=== PATIENT | male | born 1950 | race Caucasian/White ===

== ENCOUNTER 2019-11-05 12:52 | Emergency (ER) | payer MEDICARE ==
[2019-11-05] MEDS ORDERED: SUBLIMAZE 100 MCG/2 ML IV ONE (13:20)
[2019-11-05] MEDS ORDERED: Zofran 4 MG/2 ML VIAL IV ONE (13:21)
--- NOTE | 2019-11-05 13:21 | ERPHSYRPT ---
- History of Present Illness Time Seen by Provider: 11/05/19 12:59 Source: patient Exam Limitations: no limitations Patient Subjective Stated Complaint: fell off truck Tuesday Triage Nursing Assessment: pt to ED c/o L rib pain r/t fall off truck on Tuesday. pt denies LOC or blood thinners. rares 8/10 pain that worsens when coughing. tender to palp. no obvious signs of injury noted. no SOB or diff breathing. ambulatory without assistance. lungs clear and equal, heart sounds clear. Physician History: Fell off back of truck 2 days ago from height approx 10-12 feet. Pt complains of B rib pain which is a 4/10. He denies LOC/[place]/cervical pain/back pain/upper or LE pain. Method of Injury: fall Occurred: days ago (2 days ago) Loss of Consciousness: no loss of consciousness Pain Location: chest Severity of Pain-Max: moderate Severity of Pain-Current: moderate Modifying Factors: Improves With: other (Deep breaths/movement) Associated Symptoms: No abdominal pain, No back pain, No confusion, No chest pain, No dizziness, No extremity injury, No headache, No lightheadedness, No muscle spasms, No nausea, No neck pain, No ringing in ears, No seizures, No shortness of breath, No slurred speech, No trouble walking, No vomiting, No vision changes Hx Tetanus, Diphtheria Vaccination/Date Given: No Hx Influenza Vaccination/Date Given: No Hx Pneumococcal Vaccination/Date Given: Yes Immunizations Up to Date: No Travel Risk - International Travel Have you traveled outside of the country in past 3 weeks: No - Coronavirus Screening Are you exhibiting any of the following symptoms?: No Close contact with a COVID-19 positive Pt in past 14-21 Days: No - Review of Systems Constitutional: No Symptoms Eyes: No Symptoms Ears, Nose, & Throat: No Symptoms Respiratory: No Symptoms Cardiac: No Symptoms Abdominal/Gastrointestinal: No Symptoms Genitourinary Symptoms: No Symptoms Musculoskeletal: No Symptoms Skin: No Symptoms Neurological: No Symptoms Psychological: No Symptoms Endocrine: No Symptoms Hematologic/Lymphatic: No Symptoms Immunological/Allergic: No Symptoms - Past Medical History Neurological History: No Pertinent History ENT History: Cataracts Cardiac History: Hypertension, Myocardial Infarction ([place]) Respiratory History: Bronchitis, Emphysema, Pneumonia Endocrine Medical History: Diabetes Type II Musculoskeletal History: No Pertinent History GI Medical History: No Pertinent History History: No Pertinent History Psycho-Social History: No Pertinent History Male Reproductive Disorders: No Pertinent History - Past Surgical History Past Surgical History: Yes Neuro Surgical History: No Pertinent History Cardiac: No Pertinent History Respiratory: No Pertinent History Gastrointestinal: Appendectomy Genitourinary: No Pertinent History Musculoskeletal: No Pertinent History Male Surgical History: No Pertinent History Other Surgical History: finger surgery - Social History Smoking Status: Current every day smoker How long have you smoked: years Exposure to second hand smoke: No Alcohol Use: None Drug Use: none Patient Lives Alone: No Significant Family History: no pertinent family hx Physical Exam - Nursing Vital Signs Nursing Vital Signs: Initial Vital Signs Pulse Rate 96 H 11/05/19 13:44 Respiratory Rate 18 11/05/19 13:44 Blood Pressure 135/85 11/05/19 13:44 O2 Sat by Pulse Oximetry 95 11/05/19 13:44 Pain Scale Pain Intensity 5 - [place] Coma Score Best Eye Response (Pérez): (4) open spontaneously Best Verbal Response (Pérez): (5) oriented Best Motor Response ([place]): (6) obeys commands Pérez Total: 15 - Physical Exam General Appearance: no apparent distress Head Injury: no evidence of injury Eye Exam: bilateral eye: normal inspection, PERRL, EOMI ENT Exam: airway nml, evidence of ENT injury, nml ext.inspection, No dental injury Neck Exam: supple, trachea midline, full range of motion, normal inspection, No limited range of motion, No muscle spasm, No pain on movement of neck (C-spine nttp) Respiratory/Chest Exam: chest tenderness (B lateral thorax ttp/Rhonchi B), rhonchi, No respiratory distress Cardiovascular Exam: normal heart sounds, regular rate/rhythm, No murmur, No normal peripheral pulses, No edema Gastrointestinal Exam: soft, normal bowel sounds, tenderness, No distention Back Exam: normal inspection, normal range of motion (No T or L spine ttp) Extremity Exam: normal inspection, normal range of motion, capillary refill <3 sec, pelvis stable, No deformities, No lacerations Peripheral Pulses: carotid (R): 2+, carotid (L): 2+ Neurologic Exam: alert, oriented x 3, cooperative, 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 as tested, normal mood/affect, nml cerebellar function, nml station & gait, sensation nml, No motor deficits, No sensory deficit Skin Exam: normal color, warm, dry, No rash SpO2 Interpretation: normal O2 Delivery: Room Air - Course EKG Interpreted by Me: RATE (NSR/rate94/Pac's/Prolonged QTc/ST-T wave changes) - CT Exams Chest CT Interpretation: Discussed w/radiologist (CT chest w IV contrast-no acute traumatic injury) Ordered Tests: Active Orders 24 hr Category Date Time Status [employer] STAT Care 11/05/19 13:45 Active EKG-ER Only STAT Care 11/05/19 13:15 Active IV Insertion STAT Care 11/05/19 13:24 Active CHEST WITH CONTRAST [CT] Stat Exams 11/05/19 13:15 Completed CBC W DIFF Stat Lab 11/05/19 13:00 Completed CMP Stat Lab 11/05/19 13:00 Completed TROPONIN Q3H Lab 11/05/19 13:00 Completed TROPONIN Q3H Lab 11/05/19 16:30 Ordered TROPONIN Q3H Lab 11/05/19 19:30 Ordered TROPONIN Q3H Lab 11/05/19 22:30 Ordered TROPONIN Q3H Lab 11/06/19 01:30 Ordered Medication Summary Discontinued Medications Generic Name Dose Route Start Last Admin Trade Name Freq PRN Reason Stop Dose Admin Fentanyl Citrate 50 mcg 11/05/19 13:20 11/05/19 13:28 Sublimaze 100 Mcg/2 Ml IV 11/05/19 13:21 50 mcg STAT ONE Administration Fentanyl Citrate Confirm 11/05/19 13:26 Sublimaze 100 Mcg/2 Ml Administered 11/05/19 13:27 Dose 100 mcg .ROUTE .STK-MED ONE Ondansetron HCl 4 mg 11/05/19 13:21 11/05/19 13:28 Zofran 4 Mg/2 Ml Vial IV 11/05/19 13:22 4 mg STAT ONE Administration Ondansetron HCl Confirm 11/05/19 13:26 Zofran 4 Mg/2 Ml Vial Administered 11/05/19 13:27 Dose 4 mg .ROUTE .STK-MED ONE Lab/Rad Data: Laboratory Result Diagrams 11/05/19 13:00 11/05/19 13:00 Laboratory Results 11/05/19 11/05/19 11/05/19 Range/Units 13:00 13:00 13:00 WBC 9.0 (4.0-10.5) K/mm3 RBC 4.80 (4.1-5.6) M/mm3 Hgb 14.8 (12.5-18.0) gm/dl Hct 44.6 (42-50) % MCV 92.9 (78-100) fl MCH 30.8 (26-32) pg MCHC 33.2 (32-36) g/dl RDW 14.5 H (11.5-14.0) % Plt Count 148 L (150-450) K/mm3 MPV 11.6 H (7.5-11.0) fl Gran % 74.8 H (36.0-66.0) % Eos # (Auto) 0.16 (0-0.5) Absolute Lymphs (auto) 1.40 (1.0-4.6) Absolute Monos (auto) 0.68 (0.0-1.3) Lymphocytes % 15.6 L (24.0-44.0) % Monocytes % 7.6 (0.0-12.0) % Eosinophils % 1.8 (0.00-5.0) % Basophils % 0.2 (0.0-0.4) % Absolute Granulocytes 6.71 (1.4-6.9) Basophils # 0.02 (0-0.4) Sodium 138 (137-145) mmol/L Potassium 4.1 (3.5-5.1) mmol/L Chloride 106 (98-107) mmol/L Carbon Dioxide 24 (22-30) mmol/L Anion Gap 12.2 (5-15) MEQ/L BUN 14 (9-20) mg/dL Creatinine 1.01 (0.66-1.25) mg/dL Estimated GFR > 60.0 ML/MIN Glucose 140 H (74-106) mg/dL Calcium 9.0 (8.4-10.2) mg/dL Total Bilirubin 0.60 (0.2-1.3) mg/dL AST 18 (17-59) U/L ALT 14 (0-50) U/L Alkaline Phosphatase 74 (38-126) U/L Troponin I 0.022 (0.000-0.034) ng/mL Serum Total Protein 7.3 (6.3-8.2) g/dL Albumin 4.1 (3.5-5.0) g/dL - Progress Progress: improved Progress Note: 11/05/19 14:39 Pain much improved after 50umg IV fentanyl/4mg IV zofran. Counseled pt/family regarding: need for follow-up - Departure Departure Disposition: Home Clinical Impression: Contusion, chest wall Condition: Stable Critical Care Time: No Referrals: JOHNNY FROST MD [Primary Care Provider] - Instructions: Blunt Chest Trauma (DC) Additional Instructions: Pain meds as needed Follow up with family MD for continued pain Return to ER for increasing pain/shortness of breath/temperature greater than 100.5 Prescriptions: Hydrocodone/APAP 10/325 mg [[place] 10/325 MG Tablet] 1 tab PO Q4H PRN PRN #6 tablet MDD 4 tabs PRN Reason: Pain
[2019-11-05] MEDS ORDERED: SUBLIMAZE 100 MCG/2 ML ONE (13:26)
[2019-11-05] MEDS ORDERED: Zofran 4 MG/2 ML VIAL ONE (13:26)
[2019-11-05 13:37] LABS: Absolute Neutrophil Ct (ANC) 6.71 (1.4-6.9); BASOPHIL % 0.2 % (0.0-0.4); Basophil (Absolute #) 0.02 (0-0.4); Eosinophil % 1.8 % (0.00-5.0); Eosinophil (Absolute #) 0.16 (0-0.5); Hematocrit 44.6 % (42-50); Hemoglobin 14.8 gm/dl (12.5-18.0); Lymphocytes % 15.6 % (24.0-44.0); Mean Cell Volume 92.9 fl (78-100); Mean Corpuscular Hemoglobin 30.8 pg (26-32); Mean Corpuscular Hgb Concent. 33.2 g/dl (32-36); Mean Platelet Volume 11.6 fl (7.5-11.0); Monocyte (Absolute #) 0.68 (0.0-1.3); Monocytes % 7.6 % (0.0-12.0); Neutrophil % 74.8 % (36.0-66.0); Platelet Count 148 K/mm3 (150-450); Red Cell Distribution Width 14.5 % (11.5-14.0)
[2019-11-05 13:44] LABS: ALBUMIN 4.1 g/dL (3.5-5.0); ALKALINE PHOSPHATASE 74 U/L (38-126); ANION GAP 12.2 MEQ/L (5-15); BLOOD UREA NITROGEN 14 mg/dL (9-20); CHLORIDE 106 mmol/L (98-107); Carbon Dioxide 24 mmol/L (22-30); Creatinine 1 1.01 mg/dL (0.66-1.25); Glucose 140 mg/dL (74-106); Potassium 4.1 mmol/L (3.5-5.1); SGOT/AST 18 U/L (17-59); SGPT/ALT 14 U/L (0-50); SODIUM 138 mmol/L (137-145); Total Protein 7.3 g/dL (6.3-8.2)
[2019-11-05 13:45] VITALS: O2SAT 95
[2019-11-05 14:16] VITALS: BP 114/69; PULSE 92
--- NOTE | 2019-11-05 14:39 | XRAY ---
Indication: Chest pain following trauma 3 days ago. Multiple contiguous axial images obtained through the chest using 80 cc Isovue 370 contrast. Comparison: None Lungs demonstrates minimal bibasilar dependent atelectasis and inferior lingula subsegmental atelectasis. A few tiny left upper lobe and right lower lobe calcified granulomas. No suspicious pulmonary mass, infiltrate, effusion, or pneumothorax. Heart is not enlarged. Aorta is normal in course and caliber. A few tiny bilateral hilar calcified nodes. No pathologic mediastinal/hilar lymphadenopathy. Bony thorax intact with mild degenerative changes throughout the spine. Limited upper abdomen demonstrates splenic calcified granulomas and mild vascular calcifications. Impression: Scattered atelectasis, evidence for old granulomatous disease, and chronic bony findings. Remaining CT chest with contrast exam is negative.
== END 2019-11-05 15:04 | disposition home or self-care (01) ==
LOC: ED 12:52
DX: S20.212A Contusion of left front wall of thorax, initial encounter (principal); W17.89XA Other fall from one level to another, initial encounter; I10 Essential (primary) hypertension; E11.9 Type 2 diabetes mellitus without complications
CPT/HCPCS: 36000; 36415; 71260; 80053; 84484; 85025; 93005; 93041; 96374; 96375; 99284; J2405; J3010

== ENCOUNTER 2020-11-12 11:33 | Observation (INO) | payer MEDICARE ==
[2020-11-12 12:01] LABS: Absolute Neutrophil Ct (ANC) 5.06 (1.4-6.9); BASOPHIL % 0.3 % (0.0-0.4); Basophil (Absolute #) 0.02 (0-0.4); Eosinophil % 1.1 % (0.00-5.0); Eosinophil (Absolute #) 0.07 (0-0.5); Hematocrit 41.2 % (42-50); Hemoglobin 12.8 gm/dl (12.5-18.0); Lymphocyte (Absolute #) 0.93 (1.0-4.6); Lymphocytes % 14.3 % (24.0-44.0); Mean Cell Volume 87.8 fl (78-100); Mean Corpuscular Hemoglobin 27.3 pg (26-32); Mean Corpuscular Hgb Concent. 31.1 g/dl (32-36); Mean Platelet Volume 12.2 fl (7.5-11.0); Monocyte (Absolute #) 0.43 (0.0-1.3); Monocytes % 6.6 % (0.0-12.0); Neutrophil % 77.7 % (36.0-66.0); Platelet Count 192 K/mm3 (150-450); Red Blood Count 4.69 M/mm3 (4.1-5.6); Red Cell Distribution Width 15.2 % (11.5-14.0); White Blood Count 6.5 K/mm3 (4.0-10.5)
--- NOTE | 2020-11-12 12:02 | XRAY ---
Indication: Hyperglycemia. Comparison: April 19, 2019. Portable chest less inflated and clear again with incidental tiny calcified granulomas. Heart not enlarged with interval CABG surgery. Bony thorax intact again with mild osteopenia and degenerative changes. Impression: Continued nonacute chest with chronic features.
--- NOTE | 2020-11-12 12:07 | ERPHSYRPT ---
- History of Present Illness Time Seen by Provider: 11/12/20 11:45 Source: patient Exam Limitations: no limitations Patient Subjective Stated Complaint: Pt was at cardiac rehab and took his blood sugar and it read "HI" which is over 600, Dr. Rodríguez advised for him to come to the ER Triage Nursing Assessment: Pt brought to the ER from Cardiac Rehab, tachypnic, BS reads "HI", lethargic, states that he urinates frequently, reports BS had been controlled by pills, denies pain, recent CABG Physician History: Patient is a 70-year-old male with a history of diabetes status post CABG in August, 3 months ago presented to cardiac rehab today. Patient advised to affect cardiac rehab but he was not feeling well. Patient states that he felt weak and had been urinating frequently. Staff checked his glucose. Glucometer read as high. Patient's primary care doctor, Dr. Rodríguez was notified. Dr. Rodríguez advised staff to send patient to our ED for evaluation and treatment. Patient denies chest pain shortness of breath. Patient states he just feels weak. No nausea or vomiting. No diaphoresis. No rash. Symptoms are progressive. Symptoms are moderate in intensity. No specific worsening or improving factors. Patient voices no other complaints or concerns at this time. Timing/Duration: today Severity: moderate Modifying Factors: Improves With: nothing Associated Symptoms: weakness, No nausea, No vomiting, No abdominal pain, No shortness of breath, No heartburn, No cough Allergies/Adverse Reactions: No Known Drug Allergies Allergy (Verified 11/12/20 19:42) Home Medications: Albuterol 2.5 mg/3 ml Neb [Proventil 2.5 mg/3 ml Neb] 2.5 mg IH TID PRN PRN 11/12/20 [History] Amiodarone HCl [Pacerone] 100 mg PO DAILY 11/12/20 [History] Aspirin EC 81 mg [Ecotrin 81 mg] 1 tab PO QHS 11/12/20 [History] Bumetanide 1 mg [Bumex 1 mg] 1 mg PO BID 11/12/20 [History] Clopidogrel Bisulfate 75 mg [PLAVIX 75 MG Tablet] 75 mg PO DAILY 11/12/20 [History] Docusate Sodium 100 mg [Colace 100 MG] 100 mg PO DAILY PRN PRN 11/12/20 [History] Fluticasone/Umeclidin/Vilanter [Trelegy Ellipta 100-62.5-25] 1 each IH UD 11/12/20 [History] Metoprolol Succinate 25 mg PO DAILY 11/12/20 [History] Potassium Chloride [Klor-Con M20] 20 meq PO DAILY 11/12/20 [History] Pravastatin Sodium 20 mg PO DAILY 11/12/20 [History] Sitagliptin Phosphate [Januvia] 100 mg PO DAILY 11/12/20 [History] Tadalafil [Cialis] 1 tab PO DAILY 11/12/20 [History] Hx Tetanus, Diphtheria Vaccination/Date Given: No Hx Influenza Vaccination/Date Given: No Hx Pneumococcal Vaccination/Date Given: Yes Travel Risk - International Travel Have you traveled outside of the country in past 3 weeks: No - Coronavirus Screening Are you exhibiting any of the following symptoms?: No Close contact with a COVID-19 positive Pt in past 14-21 Days: No - Vaccine Status Have you recieved a Covid-19 vaccination: Yes Taping Foreman: Moderna - Vaccination Dates Date of 2cond Vaccination (if applicable): 08/16/2020 - Review of Systems Constitutional: No Symptoms, No Fever, No Chills Eyes: No Symptoms Ears, Nose, & Throat: No Symptoms Respiratory: No Symptoms, No Cough, No Dyspnea Cardiac: No Symptoms, No Chest Pain, No Edema, No Syncope Abdominal/Gastrointestinal: No Symptoms, No Abdominal Pain, No Nausea, No Vomit ing, No Diarrhea Genitourinary Symptoms: No Symptoms, No Dysuria Musculoskeletal: No Symptoms, No Back Pain, No Neck Pain Skin: No Symptoms, No Rash Neurological: No Symptoms, No Dizziness, No Focal Weakness, No Sensory Changes Psychological: No Symptoms Endocrine: No Symptoms Hematologic/Lymphatic: No Symptoms Immunological/Allergic: No Symptoms All Other Systems: Reviewed and Negative - Past Medical History Pertinent Past Medical History: Yes Neurological History: No Pertinent History ENT History: Cataracts Cardiac History: Hypertension, Myocardial Infarction (VT) Respiratory History: Bronchitis, Emphysema, Pneumonia Endocrine Medical History: Diabetes Type II Musculoskeletal History: No Pertinent History GI Medical History: No Pertinent History History: No Pertinent History Psycho-Social History: No Pertinent History Male Reproductive Disorders: No Pertinent History - Past Surgical History Past Surgical History: Yes Neuro Surgical History: No Pertinent History Cardiac: CABG Respiratory: No Pertinent History Gastrointestinal: Appendectomy Genitourinary: No Pertinent History Musculoskeletal: No Pertinent History Male Surgical History: No Pertinent History Other Surgical History: finger surgery - Social History Smoking Status: Current every day smoker How long have you smoked: years Exposure to second hand smoke: No Alcohol Use: None Drug Use: none Patient Lives Alone: No Significant Family History: no pertinent family hx - Nursing Vital Signs Nursing Vital Signs: Initial Vital Signs Temperature 97.3 F 11/12/20 11:36 Pulse Rate 75 11/12/20 11:36 Respiratory Rate 34 H 11/12/20 11:36 Blood Pressure 133/75 11/12/20 11:36 O2 Sat by Pulse Oximetry 98 11/12/20 11:36 - Physical Exam General Appearance: no apparent distress, alert Eye Exam: PERRL/EOMI, eyes nml inspection Ears, Nose, Throat Exam: normal ENT inspection, TMs normal, pharynx normal, moist mucous membranes Neck Exam: normal inspection, non-tender, supple, full range of motion Respiratory Exam: normal breath sounds, lungs clear, No respiratory distress Cardiovascular Exam: regular rate/rhythm, normal heart sounds, normal peripheral pulses Gastrointestinal/Abdomen Exam: soft, normal bowel sounds, No tenderness, No mass Back Exam: normal inspection, normal range of motion, No CVA tenderness, No vertebral tenderness Extremity Exam: normal inspection, normal range of motion, pelvis stable Neurologic Exam: alert, oriented x 3, cooperative, normal mood/affect, sensation nml, other (RN documents that patient is lethargic. Patient is not lethargic he is alert and oriented x3.), No motor deficits Skin Exam: normal color, warm, dry, No rash Lymphatic Exam: No adenopathy SpO2 Interpretation: normal SpO2: 98 O2 Delivery: Room Air - Course Nursing assessment & vital signs reviewed: Yes EKG Interpreted by Me: RATE (74), Sinus Rhythm (Ventricular bigeminy), NORMAL AXIS, NORMAL INTERVALS - Radiology Exams Chest X-ray Interpretation: Teleradiologist Report (Tiny calcified granulomas. Heart not enlarged with interval CABG surgery. Bony thorax intact with mild osteopenia and degenerative changes. 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 STAT Care 11/12/20 11:41 Completed EKG-ER Only STAT Care 11/12/20 11:40 Completed IV Insertion STAT Care 11/12/20 11:40 Completed Pulse Oximetry (ED) STAT Care 11/12/20 11:40 Completed CHEST 1 VIEW (PORTABLE) Stat Exams 11/12/20 11:41 Completed BMP Stat Lab 11/12/20 16:38 Completed CBC W DIFF Stat Lab 11/12/20 11:52 Completed CMP Stat Lab 11/12/20 11:52 Completed Lactic Acid Urgent Lab 11/12/20 14:00 Completed MAGNESIUM Stat Lab 11/12/20 11:52 Completed POCT GLUCOSE Stat Lab 11/12/20 15:34 Completed TROPONIN Q3H Lab 11/12/20 11:52 Completed TROPONIN Q3H Lab 11/12/20 15:06 Completed TROPONIN Q3H Lab 11/12/20 18:30 Completed TROPONIN Q3H Lab 11/12/20 21:29 Completed TROPONIN Q3H Lab 11/12/20 23:34 Completed UA W/RFX UR CULTURE Stat Lab 11/12/20 11:40 Completed VBG [VENOUS BLOOD GAS] Stat Lab 11/12/20 13:09 Completed Medication Summary Generic Name Dose Route Start Last Admin Trade Name Freq PRN Reason Stop Dose Admin Albuterol Sulfate 2.5 mg 11/12/20 22:52 Proventil 2.5 Mg/3 Ml Neb 12/12/20 22:51 Q4H PRN PRN SHORTNESS OF BREATH/WHEEZING Sodium Chloride 1,000 mls @ 125 mls/hr 11/12/20 23:15 11/13/20 06:01 Sodium Chloride 0.9% 1000 Ml IV 12/12/20 23:14 125 mls/hr .Q8H RENA Administration Insulin Human Lispro 0 unit 11/12/20 23:15 Humalog SQ 12/12/20 23:14 UD PRN HYPERGLYCEMIA Morphine Sulfate 2 mg 11/12/20 19:21 Morphine Sulfate 2 Mg Inj IV 11/17/20 19:20 Q4H PRN PRN PAIN Patient Own Med : 1 each 11/13/20 10:00 Trelegy Ellipta 12/13/20 09:59 QAM RENA Discontinued Medications Generic Name Dose Route Start Last Admin Trade Name Freq PRN Reason Stop Dose Admin Aspirin 81 mg 11/12/20 23:00 11/12/20 22:55 Ecotrin 81 Mg PO 11/12/20 23:01 81 mg ONCE ONE Administration Sodium Chloride 1,000 mls @ 999 mls/hr 11/12/20 13:04 11/12/20 16:26 Sodium Chloride 0.9% 1000 Ml IV 11/12/20 14:04 Infused .Q1H1M STA Infusion Sodium Chloride Confirm 11/12/20 14:08 Sodium Chloride 0.9% 1000 Ml Administered 11/12/20 14:09 Dose 1,000 mls @ ud .ROUTE .STK-MED ONE Sodium Chloride Confirm 11/12/20 15:15 Sodium Chloride 0.9% 1000 Ml Administered 11/12/20 15:16 Dose 1,000 mls @ ud .ROUTE .STK-MED ONE Sodium Chloride 1,000 mls @ 999 mls/hr 11/12/20 15:32 11/12/20 17:04 Sodium Chloride 0.9% 1000 Ml IV 11/12/20 16:32 Infused .Q1H1M STA Infusion Insulin Human Regular 100 101 mls @ ud 11/12/20 17:30 units/ Sodium Chloride IV 11/12/20 17:31 .STK-MED ONE Potassium Chloride 20 meq in 100 mls @ 50 mls/hr 11/12/20 17:40 11/12/20 18:19 Potassium Chloride 20 Meq In Water 100ml IV 11/12/20 19:39 50 mls/hr STAT ONE Administration Potassium Chloride Confirm 11/12/20 18:18 Potassium Chloride 20 Meq In Water 100ml Administered 11/12/20 18:19 Dose 100 mls @ ud IV .STK-MED ONE Sodium Chloride Confirm 11/12/20 18:22 Sodium Chloride 0.9% 1000 Ml Administered 11/12/20 18:23 Dose 1,000 mls @ ud .ROUTE .STK-MED ONE Insulin Human Regular 100 unit 100 mls @ 7.893 mls/hr 11/12/20 18:28 / Sodium Chloride IV 12/12/20 18:27 .[id number] PRN DKA/HYPERGLYCEMIA Protocol 0.1 UNIT/KG/HR Sodium Chloride 1,000 mls @ 125 mls/hr 11/12/20 18:30 11/12/20 18:31 Sodium Chloride 0.9% 1000 Ml IV 12/12/20 18:29 125 mls/hr .Q8H RENA Administration Insulin Human Regular 100 unit 100 mls @ 7.893 mls/hr 11/12/20 19:22 11/12/20 19:27 / Sodium Chloride IV 12/12/20 19:21 0.1 unit/kg/hr .[id number] PRN 7.893 mls/hr DKA/HYPERGLYCEMIA Administration Protocol 0.1 UNIT/KG/HR Sodium Chloride Confirm 11/12/20 19:30 Sodium Chloride 0.9% 1000 Ml Administered 11/12/20 19:31 Dose 1,000 mls @ ud .ROUTE .STK-MED ONE Potassium Chloride/Dextrose/Sod Cl Confirm 11/12/20 23:03 D5w/0.45ns W/ 20meq Kcl 1000 Ml Administered 11/12/20 23:04 Dose 1,000 mls @ ud IV .STK-MED ONE Potassium Chloride/Dextrose/Sod Cl 1,000 mls @ 150 mls/hr 11/12/20 23:30 11/12/20 23:06 D5w/0.45ns W/ 20meq Kcl 1000 Ml IV 12/12/20 23:29 150 mls/hr .Q6H40M RENA Administration Insulin Glargine 10 unit 11/12/20 23:20 11/12/20 23:18 Lantus Insulin SQ 11/12/20 23:21 10 unit ONCE ONE Administration Lab/Rad Data: Laboratory Result Diagrams 11/12/20 11:52 11/12/20 16:38 Laboratory Results 11/12/20 11/12/20 11/12/20 Range/Units 18:30 16:48 16:38 WBC (4.0-10.5) K/mm3 RBC (4.1-5.6) M/mm3 Hgb (12.5-18.0) gm/dl Hct (42-50) % MCV (78-100) fl MCH (26-32) pg MCHC (32-36) g/dl RDW (11.5-14.0) % Plt Count (150-450) K/mm3 MPV (7.5-11.0) fl Gran % (36.0-66.0) % Eos # (Auto) (0-0.5) Absolute Lymphs (auto) (1.0-4.6) Absolute Monos (auto) (0.0-1.3) Lymphocytes % (24.0-44.0) % Monocytes % (0.0-12.0) % Eosinophils % (0.00-5.0) % Basophils % (0.0-0.4) % Absolute Granulocytes (1.4-6.9) Basophils # (0-0.4) pO2/FiO2 Ratio % VBG pH (7.32-7.42) VBG pCO2 at Pat Temp (42-55) mm/Hg VBG pO2 at Pat Temp (25-40) mm/Hg VBG HCO3 (22-28) meq/L VBG O2 Sat (Antoine) (95-100) VBG Base Excess (-2.0-2.0) VBG Hemoglobin VBG Carboxyhemoglobin (0.0-6.9) % T HGB POC Potassium (3.5-5.1) Sodium 131 L D (137-145) mmol/L Potassium 4.2 (3.5-5.1) mmol/L Chloride 96 L D (98-107) mmol/L Carbon Dioxide 22 (22-30) mmol/L Anion Gap 16.5 H (5-15) MEQ/L BUN 20 (9-20) mg/dL Creatinine 1.14 (0.66-1.25) mg/dL Estimated GFR > 60.0 ML/MIN Glucose 537 H* (74-106) mg/dL POC Glucometer (50 to 500) mg/dL Lactic Acid (0.4-2.0) Calcium 8.5 (8.4-10.2) mg/dL Magnesium (1.6-2.3) mg/dL Total Bilirubin (0.2-1.3) mg/dL AST (17-59) U/L ALT (0-50) U/L Alkaline Phosphatase (38-126) U/L Troponin I 0.020 (0.000-0.034) ng/mL Serum Total Protein (6.3-8.2) g/dL Albumin (3.5-5.0) g/dL Urine Color (YELLOW) Urine Appearance (CLEAR) Urine pH (5-6) Ur Specific [place] (1.005-1.025) Urine Protein (Negative) Urine Ketones (NEGATIVE) Urine Blood (0-5) Rickey/ul Urine Nitrite (NEGATIVE) Urine Bilirubin (NEGATIVE) Urine Urobilinogen (0-1) mg/dL Ur Leukocyte Esterase (NEGATIVE) Urine WBC (Auto) (0-5) /HPF Urine RBC (Auto) (0-2) /HPF U Epithel Cells (Auto) (FEW) /HPF Urine Bacteria (Auto) (NEGATIVE) /HPF Urine Mucus (Auto) (NEGATIVE) /HPF Urine Culture Reflexed (NO) Urine Glucose (NEGATIVE) mg/dL SARS-CoV-2 (PCR) NEGATIVE (NEGATIVE) 11/12/20 11/12/20 11/12/20 Range/Units 15:34 15:06 14:00 WBC (4.0-10.5) K/mm3 RBC (4.1-5.6) M/mm3 Hgb (12.5-18.0) gm/dl Hct (42-50) % MCV (78-100) fl MCH (26-32) pg MCHC (32-36) g/dl RDW (11.5-14.0) % Plt Count (150-450) K/mm3 MPV (7.5-11.0) fl Gran % (36.0-66.0) % Eos # (Auto) (0-0.5) Absolute Lymphs (auto) (1.0-4.6) Absolute Monos (auto) (0.0-1.3) Lymphocytes % (24.0-44.0) % Monocytes % (0.0-12.0) % Eosinophils % (0.00-5.0) % Basophils % (0.0-0.4) % Absolute Granulocytes (1.4-6.9) Basophils # (0-0.4) pO2/FiO2 Ratio % VBG pH (7.32-7.42) VBG pCO2 at Pat Temp (42-55) mm/Hg VBG pO2 at Pat Temp (25-40) mm/Hg VBG HCO3 (22-28) meq/L VBG O2 Sat (Antoine) (95-100) VBG Base Excess (-2.0-2.0) VBG Hemoglobin VBG Carboxyhemoglobin (0.0-6.9) % T HGB POC Potassium (3.5-5.1) Sodium (137-145) mmol/L Potassium (3.5-5.1) mmol/L Chloride (98-107) mmol/L Carbon Dioxide (22-30) mmol/L Anion Gap (5-15) MEQ/L BUN (9-20) mg/dL Creatinine (0.66-1.25) mg/dL Estimated GFR ML/MIN Glucose (74-106) mg/dL POC Glucometer 576 H* (50 to 500) mg/dL Lactic Acid 3.0 H (0.4-2.0) Calcium (8.4-10.2) mg/dL Magnesium (1.6-2.3) mg/dL Total Bilirubin (0.2-1.3) mg/dL AST (17-59) U/L ALT (0-50) U/L Alkaline Phosphatase (38-126) U/L Troponin I 0.017 (0.000-0.034) ng/mL Serum Total Protein (6.3-8.2) g/dL Albumin (3.5-5.0) g/dL Urine Color (YELLOW) Urine Appearance (CLEAR) Urine pH (5-6) Ur Specific [place] (1.005-1.025) Urine Protein (Negative) Urine Ketones (NEGATIVE) Urine Blood (0-5) Rickey/ul Urine Nitrite (NEGATIVE) Urine Bilirubin (NEGATIVE) Urine Urobilinogen (0-1) mg/dL Ur Leukocyte Esterase (NEGATIVE) Urine WBC (Auto) (0-5) /HPF Urine RBC (Auto) (0-2) /HPF U Epithel Cells (Auto) (FEW) /HPF Urine Bacteria (Auto) (NEGATIVE) /HPF Urine Mucus (Auto) (NEGATIVE) /HPF Urine Culture Reflexed (NO) Urine Glucose (NEGATIVE) mg/dL SARS-CoV-2 (PCR) (NEGATIVE) 11/12/20 11/12/20 11/12/20 Range/Units 13:09 11:52 11:52 WBC (4.0-10.5) K/mm3 RBC (4.1-5.6) M/mm3 Hgb (12.5-18.0) gm/dl Hct (42-50) % MCV (78-100) fl MCH (26-32) pg MCHC (32-36) g/dl RDW (11.5-14.0) % Plt Count (150-450) K/mm3 MPV (7.5-11.0) fl Gran % (36.0-66.0) % Eos # (Auto) (0-0.5) Absolute Lymphs (auto) (1.0-4.6) Absolute Monos (auto) (0.0-1.3) Lymphocytes % (24.0-44.0) % Monocytes % (0.0-12.0) % Eosinophils % (0.00-5.0) % Basophils % (0.0-0.4) % Absolute Granulocytes (1.4-6.9) Basophils # (0-0.4) pO2/FiO2 Ratio 21.0 % VBG pH 7.29 L (7.32-7.42) VBG pCO2 at Pat Temp 50 (42-55) mm/Hg VBG pO2 at Pat Temp 34 (25-40) mm/Hg VBG HCO3 24.0 (22-28) meq/L VBG O2 Sat (Antoine) 59.2 L (95-100) VBG Base Excess -3.1 L (-2.0-2.0) VBG Hemoglobin 13.4 VBG Carboxyhemoglobin 3.4 (0.0-6.9) % T HGB POC Potassium 5.2 H (3.5-5.1) Sodium 122 L (137-145) mmol/L Potassium 4.7 (3.5-5.1) mmol/L Chloride 84 L (98-107) mmol/L Carbon Dioxide 24 (22-30) mmol/L Anion Gap 18.5 H (5-15) MEQ/L BUN 22 H (9-20) mg/dL Creatinine 1.36 H (0.66-1.25) mg/dL Estimated GFR 55.2 ML/MIN Glucose 972 H* (74-106) mg/dL POC Glucometer (50 to 500) mg/dL Lactic Acid (0.4-2.0) Calcium 8.8 (8.4-10.2) mg/dL Magnesium 2.2 (1.6-2.3) mg/dL Total Bilirubin 0.30 (0.2-1.3) mg/dL AST 16 L (17-59) U/L ALT 13 (0-50) U/L Alkaline Phosphatase 139 H (38-126) U/L Troponin I 0.015 (0.000-0.034) ng/mL Serum Total Protein 7.6 (6.3-8.2) g/dL Albumin 4.3 (3.5-5.0) g/dL Urine Color (YELLOW) Urine Appearance (CLEAR) Urine pH (5-6) Ur Specific [place] (1.005-1.025) Urine Protein (Negative) Urine Ketones (NEGATIVE) Urine Blood (0-5) Rickey/ul Urine Nitrite (NEGATIVE) Urine Bilirubin (NEGATIVE) Urine Urobilinogen (0-1) mg/dL Ur Leukocyte Esterase (NEGATIVE) Urine WBC (Auto) (0-5) /HPF Urine RBC (Auto) (0-2) /HPF U Epithel Cells (Auto) (FEW) /HPF Urine Bacteria (Auto) (NEGATIVE) /HPF Urine Mucus (Auto) (NEGATIVE) /HPF Urine Culture Reflexed (NO) Urine Glucose (NEGATIVE) mg/dL SARS-CoV-2 (PCR) (NEGATIVE) 11/12/20 11/12/20 Range/Units 11:52 11:40 WBC 6.5 (4.0-10.5) K/mm3 RBC 4.69 (4.1-5.6) M/mm3 Hgb 12.8 (12.5-18.0) gm/dl Hct 41.2 L (42-50) % MCV 87.8 (78-100) fl MCH 27.3 (26-32) pg MCHC 31.1 L (32-36) g/dl RDW 15.2 H (11.5-14.0) % Plt Count 192 (150-450) K/mm3 MPV 12.2 H (7.5-11.0) fl Gran % 77.7 H (36.0-66.0) % Eos # (Auto) 0.07 (0-0.5) Absolute Lymphs (auto) 0.93 L (1.0-4.6) Absolute Monos (auto) 0.43 (0.0-1.3) Lymphocytes % 14.3 L (24.0-44.0) % Monocytes % 6.6 (0.0-12.0) % Eosinophils % 1.1 (0.00-5.0) % Basophils % 0.3 (0.0-0.4) % Absolute Granulocytes 5.06 (1.4-6.9) Basophils # 0.02 (0-0.4) pO2/FiO2 Ratio % VBG pH (7.32-7.42) VBG pCO2 at Pat Temp (42-55) mm/Hg VBG pO2 at Pat Temp (25-40) mm/Hg VBG HCO3 (22-28) meq/L VBG O2 Sat (Antoine) (95-100) VBG Base Excess (-2.0-2.0) VBG Hemoglobin VBG Carboxyhemoglobin (0.0-6.9) % T HGB POC Potassium (3.5-5.1) Sodium (137-145) mmol/L Potassium (3.5-5.1) mmol/L Chloride (98-107) mmol/L Carbon Dioxide (22-30) mmol/L Anion Gap (5-15) MEQ/L BUN (9-20) mg/dL Creatinine (0.66-1.25) mg/dL Estimated GFR ML/MIN Glucose (74-106) mg/dL POC Glucometer (50 to 500) mg/dL Lactic Acid (0.4-2.0) Calcium (8.4-10.2) mg/dL Magnesium (1.6-2.3) mg/dL Total Bilirubin (0.2-1.3) mg/dL AST (17-59) U/L ALT (0-50) U/L Alkaline Phosphatase (38-126) U/L Troponin I (0.000-0.034) ng/mL Serum Total Protein (6.3-8.2) g/dL Albumin (3.5-5.0) g/dL Urine Color COLORLESS (YELLOW) Urine Appearance CLEAR (CLEAR) Urine pH 5.0 (5-6) Ur Specific [place] 1.016 (1.005-1.025) Urine Protein NEGATIVE (Negative) Urine Ketones NEGATIVE (NEGATIVE) Urine Blood NEGATIVE (0-5) Rickey/ul Urine Nitrite NEGATIVE (NEGATIVE) Urine Bilirubin NEGATIVE (NEGATIVE) Urine Urobilinogen NEGATIVE (0-1) mg/dL Ur Leukocyte Esterase NEGATIVE (NEGATIVE) Urine WBC (Auto) NONE (0-5) /HPF Urine RBC (Auto) NONE (0-2) /HPF U Epithel Cells (Auto) NONE (FEW) /HPF Urine Bacteria (Auto) NONE (NEGATIVE) /HPF Urine Mucus (Auto) SLIGHT (NEGATIVE) /HPF Urine Culture Reflexed NO (NO) Urine Glucose >=500 (NEGATIVE) mg/dL SARS-CoV-2 (PCR) (NEGATIVE) - Progress Progress: improved Progress Note: Patient reassessed. He feels better. Case discussed with Dr. Rodríguez who accepts admission to observation. Covid test negative. IV fluids infused to address hyponatremia. Insulin drip initiated. Patient admitted as management per DKA protocol. Plan of care discussed with patient. He agrees admission [facility] for further evaluation and treatment. 11/13/20 07:[address] Sanjiv Will see patient in: hospital (observation) Counseled pt/family regarding: lab results, diagnosis, rad results - Departure Departure Disposition: Observation Clinical Impression: Lung granuloma, Osteopenia, Glucosuria, DKA, type 2, Hyperglycemia Condition: Good Critical Care Time: No
[2020-11-12 12:16] LABS: ALBUMIN 4.3 g/dL (3.5-5.0); ANION GAP 18.5 MEQ/L (5-15); BILIRUBIN,TOTAL 0.3 mg/dL (0.2-1.3); Calcium 8.8 mg/dL (8.4-10.2); Creatinine 1 1.36 mg/dL (0.66-1.25); EST GLOMERULAR FILTRATION RATE 55.2 ML/MIN; MAGNESIUM 2.2 mg/dL (1.6-2.3); Potassium 4.7 mmol/L (3.5-5.1); Total Protein 7.6 g/dL (6.3-8.2)
[2020-11-12 12:42] LABS: Appearance CLEAR (CLEAR); Bilirubin NEGATIVE (NEGATIVE); Blood NEGATIVE Ery/ul (0-5); Glucose >=500 mg/dL (NEGATIVE); Ketones NEGATIVE (NEGATIVE); Leukocyte Esterase NEGATIVE (NEGATIVE); Mucus SLIGHT /HPF (NEGATIVE); Nitrite NEGATIVE (NEGATIVE); Protein,Urine Dip NEGATIVE (Negative); Specific Gravity 1.016 (1.005-1.025); Urobilinogen NEGATIVE mg/dL (0-1)
[2020-11-12] MEDS ORDERED: Sodium Chloride 0.9% 1000 ML 1,000 ML IV STA ×2 (13:04→15:32)
[2020-11-12 13:48] LABS: VBG BASE EXCESS -3.1 (-2.0-2.0); VBG CARBOXYHEMOGLOBIN 3.4 % T HGB (0.0-6.9); VBG HEMOGLOBIN 13.4; VBG O2 SATURATION 59.2 (95-100); VBG POTASSIUM 5.2 (3.5-5.1); VBG pH 7.29 (7.32-7.42)
[2020-11-12] MEDS ORDERED: Sodium Chloride 0.9% 1000 ML 1,000 ML ONE ×4 (14:08→19:30)
[2020-11-12 17:26] LABS: ANION GAP 16.5 MEQ/L (5-15); BLOOD UREA NITROGEN 20 mg/dL (9-20); CHLORIDE 96 mmol/L (98-107); Calcium 8.5 mg/dL (8.4-10.2); Carbon Dioxide 22 mmol/L (22-30); Creatinine 1 1.14 mg/dL (0.66-1.25); EST GLOMERULAR FILTRATION RATE > 60.0 ML/MIN; Potassium 4.2 mmol/L (3.5-5.1); SODIUM 131 mmol/L (137-145)
[2020-11-12] MEDS ORDERED: HUMULIN R INSULIN (FOR DRIPS)** 100 UNITS in Sodium Chloride 0.9% 100 ML BAG 100 ML IV ONE (17:30)
[2020-11-12 17:34] LABS: Glucose 537 mg/dL (74-106)
[2020-11-12] MEDS ORDERED: POTASSIUM CHLORIDE 20 mEq IN WATER 100ML 20 MEQ/100 ML BAG IV ONE (17:40)
[2020-11-12] MEDS ORDERED: POTASSIUM CHLORIDE 20 mEq IN WATER 100ML 100 ML IV ONE (18:18)
[2020-11-12] MEDS ORDERED: HUMULIN R 100 UNIT in Sodium Chloride 0.9% 100 ML BAG 100 ML IV PRN ×2 (18:28→19:22)
[2020-11-12] MEDS ORDERED: Sodium Chloride 0.9% 1000 ML 1,000 ML IV SCH (18:30)
[2020-11-12] MEDS ORDERED: MORPHINE SULFATE 2 MG INJ IV PRN (19:21)
[2020-11-12 22:14] LABS: ANION GAP 15.3 MEQ/L (5-15); BLOOD UREA NITROGEN 18 mg/dL (9-20); CHLORIDE 102 mmol/L (98-107); Calcium 8.9 mg/dL (8.4-10.2); Carbon Dioxide 23 mmol/L (22-30); Creatinine 1 1.13 mg/dL (0.66-1.25); EST GLOMERULAR FILTRATION RATE > 60.0 ML/MIN; Glucose 258 mg/dL (74-106); Potassium 3.7 mmol/L (3.5-5.1); SODIUM 136 mmol/L (137-145)
[2020-11-12] MEDS ORDERED: PROVENTIL 2.5 MG/3 ML NEB IH PRN (22:52)
[2020-11-12] MEDS ORDERED: ECOTRIN 81 MG PO ONE (23:00)
[2020-11-12] MEDS ORDERED: D5W/0.45NS W/ 20mEq KCl 1000 ML 1,000 ML IV ONE (23:03)
[2020-11-12] MEDS ORDERED: HUMALOG SQ PRN (23:15)
[2020-11-12] MEDS: Sodium Chloride 0.9% 1000 ML 1,000 ML IV SCH (23:19)
[2020-11-12] MEDS ORDERED: Lantus Insulin SQ ONE (23:20)
[2020-11-12] MEDS ORDERED: D5W/0.45NS W/ 20mEq KCl 1000 ML 1,000 ML IV SCH (23:30)
[2020-11-13 04:35] LABS: Lactic Acid 0.7 (0.4-2.0); VBG BASE EXCESS -2.5 (-2.0-2.0); VBG CARBOXYHEMOGLOBIN 4.1 % T HGB (0.0-6.9); VBG HCO3- 21.7 meq/L (22-28); VBG HEMOGLOBIN 12.1; VBG POTASSIUM 3.9 (3.5-5.1); VBG pH 7.4 (7.32-7.42)
[2020-11-13 05:05] LABS: Absolute Neutrophil Ct (ANC) 4.95 (1.4-6.9); BASOPHIL % 0.3 % (0.0-0.4); Basophil (Absolute #) 0.02 (0-0.4); Eosinophil % 3.1 % (0.00-5.0); Eosinophil (Absolute #) 0.23 (0-0.5); Hematocrit 36.6 % (42-50); Hemoglobin 11.6 gm/dl (12.5-18.0); Lymphocyte (Absolute #) 1.61 (1.0-4.6); Mean Cell Volume 85.5 fl (78-100); Mean Corpuscular Hemoglobin 27.1 pg (26-32); Mean Corpuscular Hgb Concent. 31.7 g/dl (32-36); Mean Platelet Volume 12.2 fl (7.5-11.0); Monocyte (Absolute #) 0.51 (0.0-1.3); Neutrophil % 67.6 % (36.0-66.0); Platelet Count 192 K/mm3 (150-450); Red Blood Count 4.28 M/mm3 (4.1-5.6); Red Cell Distribution Width 14.9 % (11.5-14.0); White Blood Count 7.3 K/mm3 (4.0-10.5)
[2020-11-13 05:14] LABS: ALBUMIN 3.3 g/dL (3.5-5.0); ALKALINE PHOSPHATASE 91 U/L (38-126); ANION GAP 13.7 MEQ/L (5-15); BLOOD UREA NITROGEN 18 mg/dL (9-20); CHLORIDE 105 mmol/L (98-107); Calcium 8.4 mg/dL (8.4-10.2); Carbon Dioxide 20 mmol/L (22-30); Creatinine 1 1.08 mg/dL (0.66-1.25); EST GLOMERULAR FILTRATION RATE > 60.0 ML/MIN; Glucose 171 mg/dL (74-106); Potassium 3.8 mmol/L (3.5-5.1); SGOT/AST 18 U/L (17-59); SGPT/ALT 9 U/L (0-50); SODIUM 135 mmol/L (137-145); Total Protein 6.4 g/dL (6.3-8.2)
[2020-11-13] MEDS: Sodium Chloride 0.9% 1000 ML 1,000 ML IV SCH (06:01)
[2020-11-13 07:51] VITALS: O2SAT 98
[2020-11-13] MEDS ORDERED: D5W/0.45NS W/ 20mEq KCl 1000 ML 1,000 ML IV SCH (08:00)
[2020-11-13] MEDS ORDERED: POTASSIUM CHLORIDE 20 mEq IN WATER 100ML 100 ML IV PRN (08:01)
[2020-11-13] MEDS ORDERED: K-LYTE 25 MEQ PO PRN (08:02)
[2020-11-13] MEDS ORDERED: Magnesium 1 Gm / 100 Ml D5W*** 100 ML IV PRN (08:04)
--- NOTE | 2020-11-13 08:19 | PCM.SSS ---
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 He feels well today and was fairly asymptomatic, he admits to not checking his blood sugars regularly, a1c was 13% on arrival. - Review of Systems Constitutional: No Fever, No Chills Respiratory: No Symptoms Cardiac: No Chest Pain, No Edema, No Syncope Abdominal/Gastrointestinal: No Abdominal Pain, No Nausea, No Vomiting, No Diarrhea Skin: No Rash Neurological: No Dizziness, No Focal Weakness, No Sensory Changes All Other Systems: Reviewed and Negative Medications & Allergies Home Medications: Home Medication List Albuterol 2.5 mg/3 ml Neb [Proventil 2.5 mg/3 ml Neb] 2.5 mg IH TID PRN PRN 11/12/20 [History Confirmed 11/12/20] Amiodarone HCl [Pacerone] 100 mg PO DAILY 11/12/20 [History Confirmed 11/12/20] Aspirin EC 81 mg [Ecotrin 81 mg] 1 tab PO QHS 11/12/20 [History Confirmed 11/12/20] Bumetanide 1 mg [Bumex 1 mg] 1 mg PO BID 11/12/20 [History Confirmed 11/26] Clopidogrel Bisulfate 75 mg [PLAVIX 75 MG Tablet] 75 mg PO DAILY 11/12/20 [History Confirmed 11/12/20] Docusate Sodium 100 mg [Colace 100 MG] 100 mg PO DAILY PRN PRN 11/12/20 [History Confirmed 11/12/20] Fluticasone/Umeclidin/Vilanter [Trelegy Ellipta 100-62.5-25] 1 each IH UD 11/26 [History Confirmed 11/12/20] Metoprolol Succinate 25 mg PO DAILY 11/12/20 [History Confirmed 11/12/20] Potassium Chloride [Klor-Con M20] 20 meq PO DAILY 11/12/20 [History Confirmed 11/12/20] Pravastatin Sodium 20 mg PO DAILY 11/12/20 [History Confirmed 11/12/20] Sitagliptin Phosphate [Januvia] 100 mg PO DAILY 11/12/20 [History Confirmed 11/12/20] Tadalafil [Cialis] 1 tab PO DAILY 11/12/20 [History Confirmed 11/12/20] Insulin Glargine,Hum.rec.anlog [Lantus Solostar] 20 unit SQ HS #6 ml 11/13/20 [Rx] Metformin HCl 500 mg [Glucophage 500 MG] 500 mg PO BIDWM #60 tablet 11/13/20 [Rx] Pen Needle, Diabetic [Bd Ultra-Fine Pen Needle] 1 each SQ DAILY #100 dis.needle 11/13/20 [Rx] Allergies/Adverse Reactions: Allergies Allergy/AdvReac Type Severity Reaction Status Date / Time No Known Drug Allergies Allergy Verified 11/12/20 19:42 - Past Medical History Past Medical History: Yes Neurological History: No Pertinent History ENT History: Cataracts Cardiac History: Hypertension, Myocardial Infarction (ME) Respiratory History: Bronchitis, Emphysema, Pneumonia Endocrine Medical History: Diabetes Type II Musculoskelatal History: No Pertinent History GI Medical History: No Pertinent History History: No Pertinent History Pyscho-Social History: No Pertinent History Male Reproductive Disorders: No Pertinent History - Past Surgical History Past Surgical History: Yes Neuro Surgical History: No Pertinent History Cardiac History: CABG Respiratory Surgery: No Pertinent History GI Surgical History: Appendectomy Genitourinary Surgical Hx: No Pertinent History Musculskeletal Surgical Hx: No Pertinent History Male Surgical History: No Pertinent History Other Surgical History: finger surgery - Social History Smoking Status: Current every day smoker How long have you smoked: years Exposure to second hand smoke: No Alcohol: None Drug Use: none Significant Family History: no pertinent family hx - Physical Exam Vital Signs: Vital Signs - 24 hr Temp Pulse Resp BP Pulse Ox 11/13/20 07:56 78 11/13/20 07:52 98 11/13/20 07:50 97.7 F 81 22 135/76 95 11/13/20 07:24 78 18 92 L 11/13/20 07:00 79 20 107/81 96 11/13/20 05:57 79 19 130/75 94 L 11/13/20 05:00 87 16 118/63 94 L 11/13/20 04:00 82 20 93 L 11/13/20 03:00 97.7 F 83 18 138/80 94 L 11/13/20 02:00 81 22 107/62 93 L 11/13/20 01:00 80 20 106/57 93 L 11/13/20 00:01 78 11/13/20 00:00 78 20 88/49 90 L 11/12/20 23:06 81 22 96 11/12/20 23:00 79 20 95/53 93 L 11/12/20 22:00 87 23 96/65 97 11/12/20 21:00 74 20 108/75 95 11/12/20 20:09 97.7 F 77 24 108/75 97 11/12/20 20:00 97.7 F 77 24 134/79 97 11/12/20 19:21 94 L 11/12/20 17:11 74 24 91/72 94 L 11/12/20 15:07 72 33 H 120/76 98 11/12/20 14:11 76 22 120/76 99 11/12/20 13:07 71 21 125/71 95 11/12/20 11:48 98 11/12/20 11:36 97.3 F 75 34 H 133/75 98 General Appearance: no apparent distress, alert Neurologic Exam: alert, oriented x 3, cooperative Respiratory Exam: normal breath sounds, lungs clear, No respiratory distress Cardiovascular Exam: regular rate/rhythm, normal heart sounds, normal peripheral pulses Gastrointestinal/Abdomen Exam: soft, normal bowel sounds, No tenderness, No mass Extremity Exam: normal inspection, normal range of motion, pelvis stable Results - Labs Lab/Micro Results: Lab Results-Last 24 Hours 11/12/20 11/12/20 11/12/20 Range/Units 11:40 11:52 11:52 WBC 6.5 (4.0-10.5) K/mm3 RBC 4.69 (4.1-5.6) M/mm3 Hgb 12.8 (12.5-18.0) gm/dl Hct 41.2 L (42-50) % MCV 87.8 (78-100) fl MCH 27.3 (26-32) pg MCHC 31.1 L (32-36) g/dl RDW 15.2 H (11.5-14.0) % Plt Count 192 (150-450) K/mm3 MPV 12.2 H (7.5-11.0) fl Gran % 77.7 H (36.0-66.0) % Eos # (Auto) 0.07 (0-0.5) Absolute Lymphs (auto) 0.93 L (1.0-4.6) Absolute Monos (auto) 0.43 (0.0-1.3) Lymphocytes % 14.3 L (24.0-44.0) % Monocytes % 6.6 (0.0-12.0) % Eosinophils % 1.1 (0.00-5.0) % Basophils % 0.3 (0.0-0.4) % Absolute Granulocytes 5.06 (1.4-6.9) Basophils # 0.02 (0-0.4) pO2/FiO2 Ratio % VBG pH (7.32-7.42) VBG pCO2 at Pat Temp (42-55) mm/Hg VBG pO2 at Pat Temp (25-40) mm/Hg VBG HCO3 (22-28) meq/L VBG O2 Sat (Antoine) (95-100) VBG Base Excess (-2.0-2.0) VBG Hemoglobin VBG Carboxyhemoglobin (0.0-6.9) % T HGB POC Potassium (3.5-5.1) Sodium 122 L (137-145) mmol/L Potassium 4.7 (3.5-5.1) mmol/L Chloride 84 L (98-107) mmol/L Carbon Dioxide 24 (22-30) mmol/L Anion Gap 18.5 H (5-15) MEQ/L BUN 22 H (9-20) mg/dL Creatinine 1.36 H (0.66-1.25) mg/dL Estimated GFR 55.2 ML/MIN Glucose 972 H* (74-106) mg/dL POC Glucometer (50 to 500) mg/dL Hemoglobin A1c (4.5-6.0) % Lactic Acid (0.4-2.0) Calcium 8.8 (8.4-10.2) mg/dL Magnesium 2.2 (1.6-2.3) mg/dL Total Bilirubin 0.30 (0.2-1.3) mg/dL AST 16 L (17-59) U/L ALT 13 (0-50) U/L Alkaline Phosphatase 139 H (38-126) U/L Troponin I (0.000-0.034) ng/mL Serum Total Protein 7.6 (6.3-8.2) g/dL Albumin 4.3 (3.5-5.0) g/dL Urine Color COLORLESS (YELLOW) Urine Appearance CLEAR (CLEAR) Urine pH 5.0 (5-6) Ur Specific [place] 1.016 (1.005-1.025) Urine Protein NEGATIVE (Negative) Urine Ketones NEGATIVE (NEGATIVE) Urine Blood NEGATIVE (0-5) Rickey/ul Urine Nitrite NEGATIVE (NEGATIVE) Urine Bilirubin NEGATIVE (NEGATIVE) Urine Urobilinogen NEGATIVE (0-1) mg/dL Ur Leukocyte Esterase NEGATIVE (NEGATIVE) Urine WBC (Auto) NONE (0-5) /HPF Urine RBC (Auto) NONE (0-2) /HPF U Epithel Cells (Auto) NONE (FEW) /HPF Urine Bacteria (Auto) NONE (NEGATIVE) /HPF Urine Mucus (Auto) SLIGHT (NEGATIVE) /HPF Urine Culture Reflexed NO (NO) Urine Glucose >=500 (NEGATIVE) mg/dL SARS-CoV-2 (PCR) (NEGATIVE) 11/12/20 11/12/20 11/12/20 Range/Units 11:52 13:09 14:00 WBC (4.0-10.5) K/mm3 RBC (4.1-5.6) M/mm3 Hgb (12.5-18.0) gm/dl Hct (42-50) % MCV (78-100) fl MCH (26-32) pg MCHC (32-36) g/dl RDW (11.5-14.0) % Plt Count (150-450) K/mm3 MPV (7.5-11.0) fl Gran % (36.0-66.0) % Eos # (Auto) (0-0.5) Absolute Lymphs (auto) (1.0-4.6) Absolute Monos (auto) (0.0-1.3) Lymphocytes % (24.0-44.0) % Monocytes % (0.0-12.0) % Eosinophils % (0.00-5.0) % Basophils % (0.0-0.4) % Absolute Granulocytes (1.4-6.9) Basophils # (0-0.4) pO2/FiO2 Ratio 21.0 % VBG pH 7.29 L (7.32-7.42) VBG pCO2 at Pat Temp 50 (42-55) mm/Hg VBG pO2 at Pat Temp 34 (25-40) mm/Hg VBG HCO3 24.0 (22-28) meq/L VBG O2 Sat (Antoine) 59.2 L (95-100) VBG Base Excess -3.1 L (-2.0-2.0) VBG Hemoglobin 13.4 VBG Carboxyhemoglobin 3.4 (0.0-6.9) % T HGB POC Potassium 5.2 H (3.5-5.1) Sodium (137-145) mmol/L Potassium (3.5-5.1) mmol/L Chloride (98-107) mmol/L Carbon Dioxide (22-30) mmol/L Anion Gap (5-15) MEQ/L BUN (9-20) mg/dL Creatinine (0.66-1.25) mg/dL Estimated GFR ML/MIN Glucose (74-106) mg/dL POC Glucometer (50 to 500) mg/dL Hemoglobin A1c (4.5-6.0) % Lactic Acid 3.0 H (0.4-2.0) Calcium (8.4-10.2) mg/dL Magnesium (1.6-2.3) mg/dL Total Bilirubin (0.2-1.3) mg/dL AST (17-59) U/L ALT (0-50) U/L Alkaline Phosphatase (38-126) U/L Troponin I 0.015 (0.000-0.034) ng/mL Serum Total Protein (6.3-8.2) g/dL Albumin (3.5-5.0) g/dL Urine Color (YELLOW) Urine Appearance (CLEAR) Urine pH (5-6) Ur Specific [place] (1.005-1.025) Urine Protein (Negative) Urine Ketones (NEGATIVE) Urine Blood (0-5) Rickey/ul Urine Nitrite (NEGATIVE) Urine Bilirubin (NEGATIVE) Urine Urobilinogen (0-1) mg/dL Ur Leukocyte Esterase (NEGATIVE) Urine WBC (Auto) (0-5) /HPF Urine RBC (Auto) (0-2) /HPF U Epithel Cells (Auto) (FEW) /HPF Urine Bacteria (Auto) (NEGATIVE) /HPF Urine Mucus (Auto) (NEGATIVE) /HPF Urine Culture Reflexed (NO) Urine Glucose (NEGATIVE) mg/dL SARS-CoV-2 (PCR) (NEGATIVE) 11/12/20 11/12/20 11/12/20 Range/Units 15:06 15:34 16:38 WBC (4.0-10.5) K/mm3 RBC (4.1-5.6) M/mm3 Hgb (12.5-18.0) gm/dl Hct (42-50) % MCV (78-100) fl MCH (26-32) pg MCHC (32-36) g/dl RDW (11.5-14.0) % Plt Count (150-450) K/mm3 MPV (7.5-11.0) fl Gran % (36.0-66.0) % Eos # (Auto) (0-0.5) Absolute Lymphs (auto) (1.0-4.6) Absolute Monos (auto) (0.0-1.3) Lymphocytes % (24.0-44.0) % Monocytes % (0.0-12.0) % Eosinophils % (0.00-5.0) % Basophils % (0.0-0.4) % Absolute Granulocytes (1.4-6.9) Basophils # (0-0.4) pO2/FiO2 Ratio % VBG pH (7.32-7.42) VBG pCO2 at Pat Temp (42-55) mm/Hg VBG pO2 at Pat Temp (25-40) mm/Hg VBG HCO3 (22-28) meq/L VBG O2 Sat (Antoine) (95-100) VBG Base Excess (-2.0-2.0) VBG Hemoglobin VBG Carboxyhemoglobin (0.0-6.9) % T HGB POC Potassium (3.5-5.1) Sodium 131 L D (137-145) mmol/L Potassium 4.2 (3.5-5.1) mmol/L Chloride 96 L D (98-107) mmol/L Carbon Dioxide 22 (22-30) mmol/L Anion Gap 16.5 H (5-15) MEQ/L BUN 20 (9-20) mg/dL Creatinine 1.14 (0.66-1.25) mg/dL Estimated GFR > 60.0 ML/MIN Glucose 537 H* (74-106) mg/dL POC Glucometer 576 H* (50 to 500) mg/dL Hemoglobin A1c (4.5-6.0) % Lactic Acid (0.4-2.0) Calcium 8.5 (8.4-10.2) mg/dL Magnesium (1.6-2.3) mg/dL Total Bilirubin (0.2-1.3) mg/dL AST (17-59) U/L ALT (0-50) U/L Alkaline Phosphatase (38-126) U/L Troponin I 0.017 (0.000-0.034) ng/mL Serum Total Protein (6.3-8.2) g/dL Albumin (3.5-5.0) g/dL Urine Color (YELLOW) Urine Appearance (CLEAR) Urine pH (5-6) Ur Specific [place] (1.005-1.025) Urine Protein (Negative) Urine Ketones (NEGATIVE) Urine Blood (0-5) Rickey/ul Urine Nitrite (NEGATIVE) Urine Bilirubin (NEGATIVE) Urine Urobilinogen (0-1) mg/dL Ur Leukocyte Esterase (NEGATIVE) Urine WBC (Auto) (0-5) /HPF Urine RBC (Auto) (0-2) /HPF U Epithel Cells (Auto) (FEW) /HPF Urine Bacteria (Auto) (NEGATIVE) /HPF Urine Mucus (Auto) (NEGATIVE) /HPF Urine Culture Reflexed (NO) Urine Glucose (NEGATIVE) mg/dL SARS-CoV-2 (PCR) (NEGATIVE) 11/12/20 11/12/20 11/12/20 Range/Units 16:48 18:30 19:19 WBC (4.0-10.5) K/mm3 RBC (4.1-5.6) M/mm3 Hgb (12.5-18.0) gm/dl Hct (42-50) % MCV (78-100) fl MCH (26-32) pg MCHC (32-36) g/dl RDW (11.5-14.0) % Plt Count (150-450) K/mm3 MPV (7.5-11.0) fl Gran % (36.0-66.0) % Eos # (Auto) (0-0.5) Absolute Lymphs (auto) (1.0-4.6) Absolute Monos (auto) (0.0-1.3) Lymphocytes % (24.0-44.0) % Monocytes % (0.0-12.0) % Eosinophils % (0.00-5.0) % Basophils % (0.0-0.4) % Absolute Granulocytes (1.4-6.9) Basophils # (0-0.4) pO2/FiO2 Ratio % VBG pH (7.32-7.42) VBG pCO2 at Pat Temp (42-55) mm/Hg VBG pO2 at Pat Temp (25-40) mm/Hg VBG HCO3 (22-28) meq/L VBG O2 Sat (Antoine) (95-100) VBG Base Excess (-2.0-2.0) VBG Hemoglobin VBG Carboxyhemoglobin (0.0-6.9) % T HGB POC Potassium (3.5-5.1) Sodium (137-145) mmol/L Potassium (3.5-5.1) mmol/L Chloride (98-107) mmol/L Carbon Dioxide (22-30) mmol/L Anion Gap (5-15) MEQ/L BUN (9-20) mg/dL Creatinine (0.66-1.25) mg/dL Estimated GFR ML/MIN Glucose (74-106) mg/dL POC Glucometer 425 H (50 to 500) mg/dL Hemoglobin A1c (4.5-6.0) % Lactic Acid (0.4-2.0) Calcium (8.4-10.2) mg/dL Magnesium (1.6-2.3) mg/dL Total Bilirubin (0.2-1.3) mg/dL AST (17-59) U/L ALT (0-50) U/L Alkaline Phosphatase (38-126) U/L Troponin I 0.020 (0.000-0.034) ng/mL Serum Total Protein (6.3-8.2) g/dL Albumin (3.5-5.0) g/dL Urine Color (YELLOW) Urine Appearance (CLEAR) Urine pH (5-6) Ur Specific [place] (1.005-1.025) Urine Protein (Negative) Urine Ketones (NEGATIVE) Urine Blood (0-5) Rickey/ul Urine Nitrite (NEGATIVE) Urine Bilirubin (NEGATIVE) Urine Urobilinogen (0-1) mg/dL Ur Leukocyte Esterase (NEGATIVE) Urine WBC (Auto) (0-5) /HPF Urine RBC (Auto) (0-2) /HPF U Epithel Cells (Auto) (FEW) /HPF Urine Bacteria (Auto) (NEGATIVE) /HPF Urine Mucus (Auto) (NEGATIVE) /HPF Urine Culture Reflexed (NO) Urine Glucose (NEGATIVE) mg/dL SARS-CoV-2 (PCR) NEGATIVE (NEGATIVE) 11/12/20 11/12/20 11/12/20 Range/Units 20:33 21:29 21:29 WBC (4.0-10.5) K/mm3 RBC (4.1-5.6) M/mm3 Hgb (12.5-18.0) gm/dl Hct (42-50) % MCV (78-100) fl MCH (26-32) pg MCHC (32-36) g/dl RDW (11.5-14.0) % Plt Count (150-450) K/mm3 MPV (7.5-11.0) fl Gran % (36.0-66.0) % Eos # (Auto) (0-0.5) Absolute Lymphs (auto) (1.0-4.6) Absolute Monos (auto) (0.0-1.3) Lymphocytes % (24.0-44.0) % Monocytes % (0.0-12.0) % Eosinophils % (0.00-5.0) % Basophils % (0.0-0.4) % Absolute Granulocytes (1.4-6.9) Basophils # (0-0.4) pO2/FiO2 Ratio % VBG pH (7.32-7.42) VBG pCO2 at Pat Temp (42-55) mm/Hg VBG pO2 at Pat Temp (25-40) mm/Hg VBG HCO3 (22-28) meq/L VBG O2 Sat (Antoine) (95-100) VBG Base Excess (-2.0-2.0) VBG Hemoglobin VBG Carboxyhemoglobin (0.0-6.9) % T HGB POC Potassium (3.5-5.1) Sodium 136 L (137-145) mmol/L Potassium 3.7 (3.5-5.1) mmol/L Chloride 102 (98-107) mmol/L Carbon Dioxide 23 (22-30) mmol/L Anion Gap 15.3 H (5-15) MEQ/L BUN 18 (9-20) mg/dL Creatinine 1.13 (0.66-1.25) mg/dL Estimated GFR > 60.0 ML/MIN Glucose 258 H (74-106) mg/dL POC Glucometer 303 H (50 to 500) mg/dL Hemoglobin A1c (4.5-6.0) % Lactic Acid (0.4-2.0) Calcium 8.9 (8.4-10.2) mg/dL Magnesium (1.6-2.3) mg/dL Total Bilirubin (0.2-1.3) mg/dL AST (17-59) U/L ALT (0-50) U/L Alkaline Phosphatase (38-126) U/L Troponin I 0.020 (0.000-0.034) ng/mL Serum Total Protein (6.3-8.2) g/dL Albumin (3.5-5.0) g/dL Urine Color (YELLOW) Urine Appearance (CLEAR) Urine pH (5-6) Ur Specific [place] (1.005-1.025) Urine Protein (Negative) Urine Ketones (NEGATIVE) Urine Blood (0-5) Rickey/ul Urine Nitrite (NEGATIVE) Urine Bilirubin (NEGATIVE) Urine Urobilinogen (0-1) mg/dL Ur Leukocyte Esterase (NEGATIVE) Urine WBC (Auto) (0-5) /HPF Urine RBC (Auto) (0-2) /HPF U Epithel Cells (Auto) (FEW) /HPF Urine Bacteria (Auto) (NEGATIVE) /HPF Urine Mucus (Auto) (NEGATIVE) /HPF Urine Culture Reflexed (NO) Urine Glucose (NEGATIVE) mg/dL SARS-CoV-2 (PCR) (NEGATIVE) 11/12/20 11/12/20 11/12/20 Range/Units 21:29 21:50 21:54 WBC (4.0-10.5) K/mm3 RBC (4.1-5.6) M/mm3 Hgb (12.5-18.0) gm/dl Hct (42-50) % MCV (78-100) fl MCH (26-32) pg MCHC (32-36) g/dl RDW (11.5-14.0) % Plt Count (150-450) K/mm3 MPV (7.5-11.0) fl Gran % (36.0-66.0) % Eos # (Auto) (0-0.5) Absolute Lymphs (auto) (1.0-4.6) Absolute Monos (auto) (0.0-1.3) Lymphocytes % (24.0-44.0) % Monocytes % (0.0-12.0) % Eosinophils % (0.00-5.0) % Basophils % (0.0-0.4) % Absolute Granulocytes (1.4-6.9) Basophils # (0-0.4) pO2/FiO2 Ratio % VBG pH (7.32-7.42) VBG pCO2 at Pat Temp (42-55) mm/Hg VBG pO2 at Pat Temp (25-40) mm/Hg VBG HCO3 (22-28) meq/L VBG O2 Sat (Antoine) (95-100) VBG Base Excess (-2.0-2.0) VBG Hemoglobin VBG Carboxyhemoglobin (0.0-6.9) % T HGB POC Potassium (3.5-5.1) Sodium (137-145) mmol/L Potassium (3.5-5.1) mmol/L Chloride (98-107) mmol/L Carbon Dioxide (22-30) mmol/L Anion Gap (5-15) MEQ/L BUN (9-20) mg/dL Creatinine (0.66-1.25) mg/dL Estimated GFR ML/MIN Glucose (74-106) mg/dL POC Glucometer 283 H (50 to 500) mg/dL Hemoglobin A1c 13.01 H (4.5-6.0) % Lactic Acid 2.4 H (0.4-2.0) Calcium (8.4-10.2) mg/dL Magnesium (1.6-2.3) mg/dL Total Bilirubin (0.2-1.3) mg/dL AST (17-59) U/L ALT (0-50) U/L Alkaline Phosphatase (38-126) U/L Troponin I (0.000-0.034) ng/mL Serum Total Protein (6.3-8.2) g/dL Albumin (3.5-5.0) g/dL Urine Color (YELLOW) Urine Appearance (CLEAR) Urine pH (5-6) Ur Specific [place] (1.005-1.025) Urine Protein (Negative) Urine Ketones (NEGATIVE) Urine Blood (0-5) Rickey/ul Urine Nitrite (NEGATIVE) Urine Bilirubin (NEGATIVE) Urine Urobilinogen (0-1) mg/dL Ur Leukocyte Esterase (NEGATIVE) Urine WBC (Auto) (0-5) /HPF Urine RBC (Auto) (0-2) /HPF U Epithel Cells (Auto) (FEW) /HPF Urine Bacteria (Auto) (NEGATIVE) /HPF Urine Mucus (Auto) (NEGATIVE) /HPF Urine Culture Reflexed (NO) Urine Glucose (NEGATIVE) mg/dL SARS-CoV-2 (PCR) (NEGATIVE) 11/12/20 11/12/20 11/13/20 Range/Units 22:58 23:34 01:07 WBC (4.0-10.5) K/mm3 RBC (4.1-5.6) M/mm3 Hgb (12.5-18.0) gm/dl Hct (42-50) % MCV (78-100) fl MCH (26-32) pg MCHC (32-36) g/dl RDW (11.5-14.0) % Plt Count (150-450) K/mm3 MPV (7.5-11.0) fl Gran % (36.0-66.0) % Eos # (Auto) (0-0.5) Absolute Lymphs (auto) (1.0-4.6) Absolute Monos (auto) (0.0-1.3) Lymphocytes % (24.0-44.0) % Monocytes % (0.0-12.0) % Eosinophils % (0.00-5.0) % Basophils % (0.0-0.4) % Absolute Granulocytes (1.4-6.9) Basophils # (0-0.4) pO2/FiO2 Ratio % VBG pH (7.32-7.42) VBG pCO2 at Pat Temp (42-55) mm/Hg VBG pO2 at Pat Temp (25-40) mm/Hg VBG HCO3 (22-28) meq/L VBG O2 Sat (Antoine) (95-100) VBG Base Excess (-2.0-2.0) VBG Hemoglobin VBG Carboxyhemoglobin (0.0-6.9) % T HGB POC Potassium (3.5-5.1) Sodium (137-145) mmol/L Potassium (3.5-5.1) mmol/L Chloride (98-107) mmol/L Carbon Dioxide (22-30) mmol/L Anion Gap (5-15) MEQ/L BUN (9-20) mg/dL Creatinine (0.66-1.25) mg/dL Estimated GFR ML/MIN Glucose (74-106) mg/dL POC Glucometer 203 H 180 H (50 to 500) mg/dL Hemoglobin A1c (4.5-6.0) % Lactic Acid (0.4-2.0) Calcium (8.4-10.2) mg/dL Magnesium (1.6-2.3) mg/dL Total Bilirubin (0.2-1.3) mg/dL AST (17-59) U/L ALT (0-50) U/L Alkaline Phosphatase (38-126) U/L Troponin I 0.024 (0.000-0.034) ng/mL Serum Total Protein (6.3-8.2) g/dL Albumin (3.5-5.0) g/dL Urine Color (YELLOW) Urine Appearance (CLEAR) Urine pH (5-6) Ur Specific [place] (1.005-1.025) Urine Protein (Negative) Urine Ketones (NEGATIVE) Urine Blood (0-5) Rickey/ul Urine Nitrite (NEGATIVE) Urine Bilirubin (NEGATIVE) Urine Urobilinogen (0-1) mg/dL Ur Leukocyte Esterase (NEGATIVE) Urine WBC (Auto) (0-5) /HPF Urine RBC (Auto) (0-2) /HPF U Epithel Cells (Auto) (FEW) /HPF Urine Bacteria (Auto) (NEGATIVE) /HPF Urine Mucus (Auto) (NEGATIVE) /HPF Urine Culture Reflexed (NO) Urine Glucose (NEGATIVE) mg/dL SARS-CoV-2 (PCR) (NEGATIVE) 11/13/20 11/13/20 11/13/20 Range/Units 03:08 04:20 04:20 WBC 7.3 (4.0-10.5) K/mm3 RBC 4.28 (4.1-5.6) M/mm3 Hgb 11.6 L (12.5-18.0) gm/dl Hct 36.6 L (42-50) % MCV 85.5 (78-100) fl MCH 27.1 (26-32) pg MCHC 31.7 L (32-36) g/dl RDW 14.9 H (11.5-14.0) % Plt Count 192 (150-450) K/mm3 MPV 12.2 H (7.5-11.0) fl Gran % 67.6 H (36.0-66.0) % Eos # (Auto) 0.23 (0-0.5) Absolute Lymphs (auto) 1.61 (1.0-4.6) Absolute Monos (auto) 0.51 (0.0-1.3) Lymphocytes % 22.0 L (24.0-44.0) % Monocytes % 7.0 (0.0-12.0) % Eosinophils % 3.1 (0.00-5.0) % Basophils % 0.3 (0.0-0.4) % Absolute Granulocytes 4.95 (1.4-6.9) Basophils # 0.02 (0-0.4) pO2/FiO2 Ratio % VBG pH (7.32-7.42) VBG pCO2 at Pat Temp (42-55) mm/Hg VBG pO2 at Pat Temp (25-40) mm/Hg VBG HCO3 (22-28) meq/L VBG O2 Sat (Antoine) (95-100) VBG Base Excess (-2.0-2.0) VBG Hemoglobin VBG Carboxyhemoglobin (0.0-6.9) % T HGB POC Potassium (3.5-5.1) Sodium 135 L (137-145) mmol/L Potassium 3.8 (3.5-5.1) mmol/L Chloride 105 (98-107) mmol/L Carbon Dioxide 20 L (22-30) mmol/L Anion Gap 13.7 (5-15) MEQ/L BUN 18 (9-20) mg/dL Creatinine 1.08 (0.66-1.25) mg/dL Estimated GFR > 60.0 ML/MIN Glucose 171 H (74-106) mg/dL POC Glucometer 177 H (50 to 500) mg/dL Hemoglobin A1c (4.5-6.0) % Lactic Acid (0.4-2.0) Calcium 8.4 (8.4-10.2) mg/dL Magnesium (1.6-2.3) mg/dL Total Bilirubin 0.20 (0.2-1.3) mg/dL AST 18 (17-59) U/L ALT 9 (0-50) U/L Alkaline Phosphatase 91 (38-126) U/L Troponin I (0.000-0.034) ng/mL Serum Total Protein 6.4 (6.3-8.2) g/dL Albumin 3.3 L (3.5-5.0) g/dL Urine Color (YELLOW) Urine Appearance (CLEAR) Urine pH (5-6) Ur Specific [place] (1.005-1.025) Urine Protein (Negative) Urine Ketones (NEGATIVE) Urine Blood (0-5) Rickey/ul Urine Nitrite (NEGATIVE) Urine Bilirubin (NEGATIVE) Urine Urobilinogen (0-1) mg/dL Ur Leukocyte Esterase (NEGATIVE) Urine WBC (Auto) (0-5) /HPF Urine RBC (Auto) (0-2) /HPF U Epithel Cells (Auto) (FEW) /HPF Urine Bacteria (Auto) (NEGATIVE) /HPF Urine Mucus (Auto) (NEGATIVE) /HPF Urine Culture Reflexed (NO) Urine Glucose (NEGATIVE) mg/dL SARS-CoV-2 (PCR) (NEGATIVE) 11/13/20 11/13/20 11/13/20 Range/Units 04:30 05:09 07:00 WBC (4.0-10.5) K/mm3 RBC (4.1-5.6) M/mm3 Hgb (12.5-18.0) gm/dl Hct (42-50) % MCV (78-100) fl MCH (26-32) pg MCHC (32-36) g/dl RDW (11.5-14.0) % Plt Count (150-450) K/mm3 MPV (7.5-11.0) fl Gran % (36.0-66.0) % Eos # (Auto) (0-0.5) Absolute Lymphs (auto) (1.0-4.6) Absolute Monos (auto) (0.0-1.3) Lymphocytes % (24.0-44.0) % Monocytes % (0.0-12.0) % Eosinophils % (0.00-5.0) % Basophils % (0.0-0.4) % Absolute Granulocytes (1.4-6.9) Basophils # (0-0.4) pO2/FiO2 Ratio 21.0 % VBG pH 7.40 (7.32-7.42) VBG pCO2 at Pat Temp 35 L (42-55) mm/Hg VBG pO2 at Pat Temp 74 H (25-40) mm/Hg VBG HCO3 21.7 L (22-28) meq/L VBG O2 Sat (Antoine) 97.0 (95-100) VBG Base Excess -2.5 L (-2.0-2.0) VBG Hemoglobin 12.1 VBG Carboxyhemoglobin 4.1 (0.0-6.9) % T HGB POC Potassium 3.9 (3.5-5.1) Sodium (137-145) mmol/L Potassium (3.5-5.1) mmol/L Chloride (98-107) mmol/L Carbon Dioxide (22-30) mmol/L Anion Gap (5-15) MEQ/L BUN (9-20) mg/dL Creatinine (0.66-1.25) mg/dL Estimated GFR ML/MIN Glucose (74-106) mg/dL POC Glucometer 197 H 171 H (50 to 500) mg/dL Hemoglobin A1c (4.5-6.0) % Lactic Acid 0.7 (0.4-2.0) Calcium (8.4-10.2) mg/dL Magnesium (1.6-2.3) mg/dL Total Bilirubin (0.2-1.3) mg/dL AST (17-59) U/L ALT (0-50) U/L Alkaline Phosphatase (38-126) U/L Troponin I (0.000-0.034) ng/mL Serum Total Protein (6.3-8.2) g/dL Albumin (3.5-5.0) g/dL Urine Color (YELLOW) Urine Appearance (CLEAR) Urine pH (5-6) Ur Specific [place] (1.005-1.025) Urine Protein (Negative) Urine Ketones (NEGATIVE) Urine Blood (0-5) Rickey/ul Urine Nitrite (NEGATIVE) Urine Bilirubin (NEGATIVE) Urine Urobilinogen (0-1) mg/dL Ur Leukocyte Esterase (NEGATIVE) Urine WBC (Auto) (0-5) /HPF Urine RBC (Auto) (0-2) /HPF U Epithel Cells (Auto) (FEW) /HPF Urine Bacteria (Auto) (NEGATIVE) /HPF Urine Mucus (Auto) (NEGATIVE) /HPF Urine Culture Reflexed (NO) Urine Glucose (NEGATIVE) mg/dL SARS-CoV-2 (PCR) (NEGATIVE) Accuchecks Date 11/13/20 Date 11/13/20 Date 11/13/20 Date 11/13/20 Date 11/12/20 Date 11/12/20 Date 11/12/20 Date 11/12/20 Time 07:00 Time 05:00 Time 03:00 Time 01:00 Time 23:00 Time 22:00 Time 21:00 Time 20:00 - Radiology Impressions Radiology Exams & Impressions: Radiology Procedures Category Date Time Status CHEST 1 VIEW (PORTABLE) Stat Exams 11/12/20 11:41 Completed - Other Procedures and Tests Respiratory Therapy 11/12/20 22:54 Respiratory Therapy Assessment DAILY 11/13/20 10:00 Respiratory MDI UD Assessment/Plan (1) DKA, type 2 Current Visit: Yes Status: Acute Assessment & Plan: resolved quickly, off insulin drip and doing well now. discussed insulin therapy, will need teaching prior to discharge. has testing supplies and explai sekou importance of monitoring blood sugar and f/u with me next week Code(s): E11.10 - TYPE 2 DIABETES MELLITUS WITH KETOACIDOSIS WITHOUT COMA (2) Hyperglycemia due to type 2 diabetes mellitus Current Visit: Yes Status: Acute Code(s): E11.65 - TYPE 2 DIABETES MELLITUS WITH HYPERGLYCEMIA Hospital Summary - Vitals & Intake/Output Vital Signs: Vital Signs Temperature 97.7 F 11/13/20 07:50 Pulse Rate 78 11/13/20 07:56 Respiratory Rate 22 11/13/20 07:50 Blood Pressure 135/76 11/13/20 07:50 O2 Sat by Pulse Oximetry 98 11/13/20 07:52 Intake & Output: Intake & Output 11/10/20 11/11/20 11/12/20 11/13/20 11:59 11:59 11:59 11:59 Intake Total 2163 Output Total 400 Balance 1763 Weight 78.925 kg 72.3 kg - Lab Result Diagrams: 11/13/20 04:20 11/13/20 04:20 Lab Results-Last 24 Hrs: Lab Results-Last 24 Hours 11/12/20 11/12/20 11/12/20 Range/Units 11:40 11:52 11:52 WBC 6.5 (4.0-10.5) K/mm3 RBC 4.69 (4.1-5.6) M/mm3 Hgb 12.8 (12.5-18.0) gm/dl Hct 41.2 L (42-50) % MCV 87.8 (78-100) fl MCH 27.3 (26-32) pg MCHC 31.1 L (32-36) g/dl RDW 15.2 H (11.5-14.0) % Plt Count 192 (150-450) K/mm3 MPV 12.2 H (7.5-11.0) fl Gran % 77.7 H (36.0-66.0) % Eos # (Auto) 0.07 (0-0.5) Absolute Lymphs (auto) 0.93 L (1.0-4.6) Absolute Monos (auto) 0.43 (0.0-1.3) Lymphocytes % 14.3 L (24.0-44.0) % Monocytes % 6.6 (0.0-12.0) % Eosinophils % 1.1 (0.00-5.0) % Basophils % 0.3 (0.0-0.4) % Absolute Granulocytes 5.06 (1.4-6.9) Basophils # 0.02 (0-0.4) pO2/FiO2 Ratio % VBG pH (7.32-7.42) VBG pCO2 at Pat Temp (42-55) mm/Hg VBG pO2 at Pat Temp (25-40) mm/Hg VBG HCO3 (22-28) meq/L VBG O2 Sat (Antoine) (95-100) VBG Base Excess (-2.0-2.0) VBG Hemoglobin VBG Carboxyhemoglobin (0.0-6.9) % T HGB POC Potassium (3.5-5.1) Sodium 122 L (137-145) mmol/L Potassium 4.7 (3.5-5.1) mmol/L Chloride 84 L (98-107) mmol/L Carbon Dioxide 24 (22-30) mmol/L Anion Gap 18.5 H (5-15) MEQ/L BUN 22 H (9-20) mg/dL Creatinine 1.36 H (0.66-1.25) mg/dL Estimated GFR 55.2 ML/MIN Glucose 972 H* (74-106) mg/dL POC Glucometer (50 to 500) mg/dL Hemoglobin A1c (4.5-6.0) % Lactic Acid (0.4-2.0) Calcium 8.8 (8.4-10.2) mg/dL Magnesium 2.2 (1.6-2.3) mg/dL Total Bilirubin 0.30 (0.2-1.3) mg/dL AST 16 L (17-59) U/L ALT 13 (0-50) U/L Alkaline Phosphatase 139 H (38-126) U/L Troponin I (0.000-0.034) ng/mL Serum Total Protein 7.6 (6.3-8.2) g/dL Albumin 4.3 (3.5-5.0) g/dL Urine Color COLORLESS (YELLOW) Urine Appearance CLEAR (CLEAR) Urine pH 5.0 (5-6) Ur Specific [place] 1.016 (1.005-1.025) Urine Protein NEGATIVE (Negative) Urine Ketones NEGATIVE (NEGATIVE) Urine Blood NEGATIVE (0-5) Rickey/ul Urine Nitrite NEGATIVE (NEGATIVE) Urine Bilirubin NEGATIVE (NEGATIVE) Urine Urobilinogen NEGATIVE (0-1) mg/dL Ur Leukocyte Esterase NEGATIVE (NEGATIVE) Urine WBC (Auto) NONE (0-5) /HPF Urine RBC (Auto) NONE (0-2) /HPF U Epithel Cells (Auto) NONE (FEW) /HPF Urine Bacteria (Auto) NONE (NEGATIVE) /HPF Urine Mucus (Auto) SLIGHT (NEGATIVE) /HPF Urine Culture Reflexed NO (NO) Urine Glucose >=500 (NEGATIVE) mg/dL SARS-CoV-2 (PCR) (NEGATIVE) 11/12/20 11/12/20 11/12/20 Range/Units 11:52 13:09 14:00 WBC (4.0-10.5) K/mm3 RBC (4.1-5.6) M/mm3 Hgb (12.5-18.0) gm/dl Hct (42-50) % MCV (78-100) fl MCH (26-32) pg MCHC (32-36) g/dl RDW (11.5-14.0) % Plt Count (150-450) K/mm3 MPV (7.5-11.0) fl Gran % (36.0-66.0) % Eos # (Auto) (0-0.5) Absolute Lymphs (auto) (1.0-4.6) Absolute Monos (auto) (0.0-1.3) Lymphocytes % (24.0-44.0) % Monocytes % (0.0-12.0) % Eosinophils % (0.00-5.0) % Basophils % (0.0-0.4) % Absolute Granulocytes (1.4-6.9) Basophils # (0-0.4) pO2/FiO2 Ratio 21.0 % VBG pH 7.29 L (7.32-7.42) VBG pCO2 at Pat Temp 50 (42-55) mm/Hg VBG pO2 at Pat Temp 34 (25-40) mm/Hg VBG HCO3 24.0 (22-28) meq/L VBG O2 Sat (Antoine) 59.2 L (95-100) VBG Base Excess -3.1 L (-2.0-2.0) VBG Hemoglobin 13.4 VBG Carboxyhemoglobin 3.4 (0.0-6.9) % T HGB POC Potassium 5.2 H (3.5-5.1) Sodium (137-145) mmol/L Potassium (3.5-5.1) mmol/L Chloride (98-107) mmol/L Carbon Dioxide (22-30) mmol/L Anion Gap (5-15) MEQ/L BUN (9-20) mg/dL Creatinine (0.66-1.25) mg/dL Estimated GFR ML/MIN Glucose (74-106) mg/dL POC Glucometer (50 to 500) mg/dL Hemoglobin A1c (4.5-6.0) % Lactic Acid 3.0 H (0.4-2.0) Calcium (8.4-10.2) mg/dL Magnesium (1.6-2.3) mg/dL Total Bilirubin (0.2-1.3) mg/dL AST (17-59) U/L ALT (0-50) U/L Alkaline Phosphatase (38-126) U/L Troponin I 0.015 (0.000-0.034) ng/mL Serum Total Protein (6.3-8.2) g/dL Albumin (3.5-5.0) g/dL Urine Color (YELLOW) Urine Appearance (CLEAR) Urine pH (5-6) Ur Specific [place] (1.005-1.025) Urine Protein (Negative) Urine Ketones (NEGATIVE) Urine Blood (0-5) Rickey/ul Urine Nitrite (NEGATIVE) Urine Bilirubin (NEGATIVE) Urine Urobilinogen (0-1) mg/dL Ur Leukocyte Esterase (NEGATIVE) Urine WBC (Auto) (0-5) /HPF Urine RBC (Auto) (0-2) /HPF U Epithel Cells (Auto) (FEW) /HPF Urine Bacteria (Auto) (NEGATIVE) /HPF Urine Mucus (Auto) (NEGATIVE) /HPF Urine Culture Reflexed (NO) Urine Glucose (NEGATIVE) mg/dL SARS-CoV-2 (PCR) (NEGATIVE) 11/12/20 11/12/20 11/12/20 Range/Units 15:06 15:34 16:38 WBC (4.0-10.5) K/mm3 RBC (4.1-5.6) M/mm3 Hgb (12.5-18.0) gm/dl Hct (42-50) % MCV (78-100) fl MCH (26-32) pg MCHC (32-36) g/dl RDW (11.5-14.0) % Plt Count (150-450) K/mm3 MPV (7.5-11.0) fl Gran % (36.0-66.0) % Eos # (Auto) (0-0.5) Absolute Lymphs (auto) (1.0-4.6) Absolute Monos (auto) (0.0-1.3) Lymphocytes % (24.0-44.0) % Monocytes % (0.0-12.0) % Eosinophils % (0.00-5.0) % Basophils % (0.0-0.4) % Absolute Granulocytes (1.4-6.9) Basophils # (0-0.4) pO2/FiO2 Ratio % VBG pH (7.32-7.42) VBG pCO2 at Pat Temp (42-55) mm/Hg VBG pO2 at Pat Temp (25-40) mm/Hg VBG HCO3 (22-28) meq/L VBG O2 Sat (Antoine) (95-100) VBG Base Excess (-2.0-2.0) VBG Hemoglobin VBG Carboxyhemoglobin (0.0-6.9) % T HGB POC Potassium (3.5-5.1) Sodium 131 L D (137-145) mmol/L Potassium 4.2 (3.5-5.1) mmol/L Chloride 96 L D (98-107) mmol/L Carbon Dioxide 22 (22-30) mmol/L Anion Gap 16.5 H (5-15) MEQ/L BUN 20 (9-20) mg/dL Creatinine 1.14 (0.66-1.25) mg/dL Estimated GFR > 60.0 ML/MIN Glucose 537 H* (74-106) mg/dL POC Glucometer 576 H* (50 to 500) mg/dL Hemoglobin A1c (4.5-6.0) % Lactic Acid (0.4-2.0) Calcium 8.5 (8.4-10.2) mg/dL Magnesium (1.6-2.3) mg/dL Total Bilirubin (0.2-1.3) mg/dL AST (17-59) U/L ALT (0-50) U/L Alkaline Phosphatase (38-126) U/L Troponin I 0.017 (0.000-0.034) ng/mL Serum Total Protein (6.3-8.2) g/dL Albumin (3.5-5.0) g/dL Urine Color (YELLOW) Urine Appearance (CLEAR) Urine pH (5-6) Ur Specific [place] (1.005-1.025) Urine Protein (Negative) Urine Ketones (NEGATIVE) Urine Blood (0-5) Rickey/ul Urine Nitrite (NEGATIVE) Urine Bilirubin (NEGATIVE) Urine Urobilinogen (0-1) mg/dL Ur Leukocyte Esterase (NEGATIVE) Urine WBC (Auto) (0-5) /HPF Urine RBC (Auto) (0-2) /HPF U Epithel Cells (Auto) (FEW) /HPF Urine Bacteria (Auto) (NEGATIVE) /HPF Urine Mucus (Auto) (NEGATIVE) /HPF Urine Culture Reflexed (NO) Urine Glucose (NEGATIVE) mg/dL SARS-CoV-2 (PCR) (NEGATIVE) 11/12/20 11/12/20 11/12/20 Range/Units 16:48 18:30 19:19 WBC (4.0-10.5) K/mm3 RBC (4.1-5.6) M/mm3 Hgb (12.5-18.0) gm/dl Hct (42-50) % MCV (78-100) fl MCH (26-32) pg MCHC (32-36) g/dl RDW (11.5-14.0) % Plt Count (150-450) K/mm3 MPV (7.5-11.0) fl Gran % (36.0-66.0) % Eos # (Auto) (0-0.5) Absolute Lymphs (auto) (1.0-4.6) Absolute Monos (auto) (0.0-1.3) Lymphocytes % (24.0-44.0) % Monocytes % (0.0-12.0) % Eosinophils % (0.00-5.0) % Basophils % (0.0-0.4) % Absolute Granulocytes (1.4-6.9) Basophils # (0-0.4) pO2/FiO2 Ratio % VBG pH (7.32-7.42) VBG pCO2 at Pat Temp (42-55) mm/Hg VBG pO2 at Pat Temp (25-40) mm/Hg VBG HCO3 (22-28) meq/L VBG O2 Sat (Antoine) (95-100) VBG Base Excess (-2.0-2.0) VBG Hemoglobin VBG Carboxyhemoglobin (0.0-6.9) % T HGB POC Potassium (3.5-5.1) Sodium (137-145) mmol/L Potassium (3.5-5.1) mmol/L Chloride (98-107) mmol/L Carbon Dioxide (22-30) mmol/L Anion Gap (5-15) MEQ/L BUN (9-20) mg/dL Creatinine (0.66-1.25) mg/dL Estimated GFR ML/MIN Glucose (74-106) mg/dL POC Glucometer 425 H (50 to 500) mg/dL Hemoglobin A1c (4.5-6.0) % Lactic Acid (0.4-2.0) Calcium (8.4-10.2) mg/dL Magnesium (1.6-2.3) mg/dL Total Bilirubin (0.2-1.3) mg/dL AST (17-59) U/L ALT (0-50) U/L Alkaline Phosphatase (38-126) U/L Troponin I 0.020 (0.000-0.034) ng/mL Serum Total Protein (6.3-8.2) g/dL Albumin (3.5-5.0) g/dL Urine Color (YELLOW) Urine Appearance (CLEAR) Urine pH (5-6) Ur Specific [place] (1.005-1.025) Urine Protein (Negative) Urine Ketones (NEGATIVE) Urine Blood (0-5) Rickey/ul Urine Nitrite (NEGATIVE) Urine Bilirubin (NEGATIVE) Urine Urobilinogen (0-1) mg/dL Ur Leukocyte Esterase (NEGATIVE) Urine WBC (Auto) (0-5) /HPF Urine RBC (Auto) (0-2) /HPF U Epithel Cells (Auto) (FEW) /HPF Urine Bacteria (Auto) (NEGATIVE) /HPF Urine Mucus (Auto) (NEGATIVE) /HPF Urine Culture Reflexed (NO) Urine Glucose (NEGATIVE) mg/dL SARS-CoV-2 (PCR) NEGATIVE (NEGATIVE) 11/12/20 11/12/20 11/12/20 Range/Units 20:33 21:29 21:29 WBC (4.0-10.5) K/mm3 RBC (4.1-5.6) M/mm3 Hgb (12.5-18.0) gm/dl Hct (42-50) % MCV (78-100) fl MCH (26-32) pg MCHC (32-36) g/dl RDW (11.5-14.0) % Plt Count (150-450) K/mm3 MPV (7.5-11.0) fl Gran % (36.0-66.0) % Eos # (Auto) (0-0.5) Absolute Lymphs (auto) (1.0-4.6) Absolute Monos (auto) (0.0-1.3) Lymphocytes % (24.0-44.0) % Monocytes % (0.0-12.0) % Eosinophils % (0.00-5.0) % Basophils % (0.0-0.4) % Absolute Granulocytes (1.4-6.9) Basophils # (0-0.4) pO2/FiO2 Ratio % VBG pH (7.32-7.42) VBG pCO2 at Pat Temp (42-55) mm/Hg VBG pO2 at Pat Temp (25-40) mm/Hg VBG HCO3 (22-28) meq/L VBG O2 Sat (Antoine) (95-100) VBG Base Excess (-2.0-2.0) VBG Hemoglobin VBG Carboxyhemoglobin (0.0-6.9) % T HGB POC Potassium (3.5-5.1) Sodium 136 L (137-145) mmol/L Potassium 3.7 (3.5-5.1) mmol/L Chloride 102 (98-107) mmol/L Carbon Dioxide 23 (22-30) mmol/L Anion Gap 15.3 H (5-15) MEQ/L BUN 18 (9-20) mg/dL Creatinine 1.13 (0.66-1.25) mg/dL Estimated GFR > 60.0 ML/MIN Glucose 258 H (74-106) mg/dL POC Glucometer 303 H (50 to 500) mg/dL Hemoglobin A1c (4.5-6.0) % Lactic Acid (0.4-2.0) Calcium 8.9 (8.4-10.2) mg/dL Magnesium (1.6-2.3) mg/dL Total Bilirubin (0.2-1.3) mg/dL AST (17-59) U/L ALT (0-50) U/L Alkaline Phosphatase (38-126) U/L Troponin I 0.020 (0.000-0.034) ng/mL Serum Total Protein (6.3-8.2) g/dL Albumin (3.5-5.0) g/dL Urine Color (YELLOW) Urine Appearance (CLEAR) Urine pH (5-6) Ur Specific [place] (1.005-1.025) Urine Protein (Negative) Urine Ketones (NEGATIVE) Urine Blood (0-5) Rickey/ul Urine Nitrite (NEGATIVE) Urine Bilirubin (NEGATIVE) Urine Urobilinogen (0-1) mg/dL Ur Leukocyte Esterase (NEGATIVE) Urine WBC (Auto) (0-5) /HPF Urine RBC (Auto) (0-2) /HPF U Epithel Cells (Auto) (FEW) /HPF Urine Bacteria (Auto) (NEGATIVE) /HPF Urine Mucus (Auto) (NEGATIVE) /HPF Urine Culture Reflexed (NO) Urine Glucose (NEGATIVE) mg/dL SARS-CoV-2 (PCR) (NEGATIVE) 11/12/20 11/12/20 11/12/20 Range/Units 21:29 21:50 21:54 WBC (4.0-10.5) K/mm3 RBC (4.1-5.6) M/mm3 Hgb (12.5-18.0) gm/dl Hct (42-50) % MCV (78-100) fl MCH (26-32) pg MCHC (32-36) g/dl RDW (11.5-14.0) % Plt Count (150-450) K/mm3 MPV (7.5-11.0) fl Gran % (36.0-66.0) % Eos # (Auto) (0-0.5) Absolute Lymphs (auto) (1.0-4.6) Absolute Monos (auto) (0.0-1.3) Lymphocytes % (24.0-44.0) % Monocytes % (0.0-12.0) % Eosinophils % (0.00-5.0) % Basophils % (0.0-0.4) % Absolute Granulocytes (1.4-6.9) Basophils # (0-0.4) pO2/FiO2 Ratio % VBG pH (7.32-7.42) VBG pCO2 at Pat Temp (42-55) mm/Hg VBG pO2 at Pat Temp (25-40) mm/Hg VBG HCO3 (22-28) meq/L VBG O2 Sat (Antoine) (95-100) VBG Base Excess (-2.0-2.0) VBG Hemoglobin VBG Carboxyhemoglobin (0.0-6.9) % T HGB POC Potassium (3.5-5.1) Sodium (137-145) mmol/L Potassium (3.5-5.1) mmol/L Chloride (98-107) mmol/L Carbon Dioxide (22-30) mmol/L Anion Gap (5-15) MEQ/L BUN (9-20) mg/dL Creatinine (0.66-1.25) mg/dL Estimated GFR ML/MIN Glucose (74-106) mg/dL POC Glucometer 283 H (50 to 500) mg/dL Hemoglobin A1c 13.01 H (4.5-6.0) % Lactic Acid 2.4 H (0.4-2.0) Calcium (8.4-10.2) mg/dL Magnesium (1.6-2.3) mg/dL Total Bilirubin (0.2-1.3) mg/dL AST (17-59) U/L ALT (0-50) U/L Alkaline Phosphatase (38-126) U/L Troponin I (0.000-0.034) ng/mL Serum Total Protein (6.3-8.2) g/dL Albumin (3.5-5.0) g/dL Urine Color (YELLOW) Urine Appearance (CLEAR) Urine pH (5-6) Ur Specific [place] (1.005-1.025) Urine Protein (Negative) Urine Ketones (NEGATIVE) Urine Blood (0-5) Rickey/ul Urine Nitrite (NEGATIVE) Urine Bilirubin (NEGATIVE) Urine Urobilinogen (0-1) mg/dL Ur Leukocyte Esterase (NEGATIVE) Urine WBC (Auto) (0-5) /HPF Urine RBC (Auto) (0-2) /HPF U Epithel Cells (Auto) (FEW) /HPF Urine Bacteria (Auto) (NEGATIVE) /HPF Urine Mucus (Auto) (NEGATIVE) /HPF Urine Culture Reflexed (NO) Urine Glucose (NEGATIVE) mg/dL SARS-CoV-2 (PCR) (NEGATIVE) 11/12/20 11/12/20 11/13/20 Range/Units 22:58 23:34 01:07 WBC (4.0-10.5) K/mm3 RBC (4.1-5.6) M/mm3 Hgb (12.5-18.0) gm/dl Hct (42-50) % MCV (78-100) fl MCH (26-32) pg MCHC (32-36) g/dl RDW (11.5-14.0) % Plt Count (150-450) K/mm3 MPV (7.5-11.0) fl Gran % (36.0-66.0) % Eos # (Auto) (0-0.5) Absolute Lymphs (auto) (1.0-4.6) Absolute Monos (auto) (0.0-1.3) Lymphocytes % (24.0-44.0) % Monocytes % (0.0-12.0) % Eosinophils % (0.00-5.0) % Basophils % (0.0-0.4) % Absolute Granulocytes (1.4-6.9) Basophils # (0-0.4) pO2/FiO2 Ratio % VBG pH (7.32-7.42) VBG pCO2 at Pat Temp (42-55) mm/Hg VBG pO2 at Pat Temp (25-40) mm/Hg VBG HCO3 (22-28) meq/L VBG O2 Sat (Antoine) (95-100) VBG Base Excess (-2.0-2.0) VBG Hemoglobin VBG Carboxyhemoglobin (0.0-6.9) % T HGB POC Potassium (3.5-5.1) Sodium (137-145) mmol/L Potassium (3.5-5.1) mmol/L Chloride (98-107) mmol/L Carbon Dioxide (22-30) mmol/L Anion Gap (5-15) MEQ/L BUN (9-20) mg/dL Creatinine (0.66-1.25) mg/dL Estimated GFR ML/MIN Glucose (74-106) mg/dL POC Glucometer 203 H 180 H (50 to 500) mg/dL Hemoglobin A1c (4.5-6.0) % Lactic Acid (0.4-2.0) Calcium (8.4-10.2) mg/dL Magnesium (1.6-2.3) mg/dL Total Bilirubin (0.2-1.3) mg/dL AST (17-59) U/L ALT (0-50) U/L Alkaline Phosphatase (38-126) U/L Troponin I 0.024 (0.000-0.034) ng/mL Serum Total Protein (6.3-8.2) g/dL Albumin (3.5-5.0) g/dL Urine Color (YELLOW) Urine Appearance (CLEAR) Urine pH (5-6) Ur Specific [place] (1.005-1.025) Urine Protein (Negative) Urine Ketones (NEGATIVE) Urine Blood (0-5) Rickey/ul Urine Nitrite (NEGATIVE) Urine Bilirubin (NEGATIVE) Urine Urobilinogen (0-1) mg/dL Ur Leukocyte Esterase (NEGATIVE) Urine WBC (Auto) (0-5) /HPF Urine RBC (Auto) (0-2) /HPF U Epithel Cells (Auto) (FEW) /HPF Urine Bacteria (Auto) (NEGATIVE) /HPF Urine Mucus (Auto) (NEGATIVE) /HPF Urine Culture Reflexed (NO) Urine Glucose (NEGATIVE) mg/dL SARS-CoV-2 (PCR) (NEGATIVE) 11/13/20 11/13/20 11/13/20 Range/Units 03:08 04:20 04:20 WBC 7.3 (4.0-10.5) K/mm3 RBC 4.28 (4.1-5.6) M/mm3 Hgb 11.6 L (12.5-18.0) gm/dl Hct 36.6 L (42-50) % MCV 85.5 (78-100) fl MCH 27.1 (26-32) pg MCHC 31.7 L (32-36) g/dl RDW 14.9 H (11.5-14.0) % Plt Count 192 (150-450) K/mm3 MPV 12.2 H (7.5-11.0) fl Gran % 67.6 H (36.0-66.0) % Eos # (Auto) 0.23 (0-0.5) Absolute Lymphs (auto) 1.61 (1.0-4.6) Absolute Monos (auto) 0.51 (0.0-1.3) Lymphocytes % 22.0 L (24.0-44.0) % Monocytes % 7.0 (0.0-12.0) % Eosinophils % 3.1 (0.00-5.0) % Basophils % 0.3 (0.0-0.4) % Absolute Granulocytes 4.95 (1.4-6.9) Basophils # 0.02 (0-0.4) pO2/FiO2 Ratio % VBG pH (7.32-7.42) VBG pCO2 at Pat Temp (42-55) mm/Hg VBG pO2 at Pat Temp (25-40) mm/Hg VBG HCO3 (22-28) meq/L VBG O2 Sat (Antoine) (95-100) VBG Base Excess (-2.0-2.0) VBG Hemoglobin VBG Carboxyhemoglobin (0.0-6.9) % T HGB POC Potassium (3.5-5.1) Sodium 135 L (137-145) mmol/L Potassium 3.8 (3.5-5.1) mmol/L Chloride 105 (98-107) mmol/L Carbon Dioxide 20 L (22-30) mmol/L Anion Gap 13.7 (5-15) MEQ/L BUN 18 (9-20) mg/dL Creatinine 1.08 (0.66-1.25) mg/dL Estimated GFR > 60.0 ML/MIN Glucose 171 H (74-106) mg/dL POC Glucometer 177 H (50 to 500) mg/dL Hemoglobin A1c (4.5-6.0) % Lactic Acid (0.4-2.0) Calcium 8.4 (8.4-10.2) mg/dL Magnesium (1.6-2.3) mg/dL Total Bilirubin 0.20 (0.2-1.3) mg/dL AST 18 (17-59) U/L ALT 9 (0-50) U/L Alkaline Phosphatase 91 (38-126) U/L Troponin I (0.000-0.034) ng/mL Serum Total Protein 6.4 (6.3-8.2) g/dL Albumin 3.3 L (3.5-5.0) g/dL Urine Color (YELLOW) Urine Appearance (CLEAR) Urine pH (5-6) Ur Specific [place] (1.005-1.025) Urine Protein (Negative) Urine Ketones (NEGATIVE) Urine Blood (0-5) Rickey/ul Urine Nitrite (NEGATIVE) Urine Bilirubin (NEGATIVE) Urine Urobilinogen (0-1) mg/dL Ur Leukocyte Esterase (NEGATIVE) Urine WBC (Auto) (0-5) /HPF Urine RBC (Auto) (0-2) /HPF U Epithel Cells (Auto) (FEW) /HPF Urine Bacteria (Auto) (NEGATIVE) /HPF Urine Mucus (Auto) (NEGATIVE) /HPF Urine Culture Reflexed (NO) Urine Glucose (NEGATIVE) mg/dL SARS-CoV-2 (PCR) (NEGATIVE) 11/13/20 11/13/20 11/13/20 Range/Units 04:30 05:09 07:00 WBC (4.0-10.5) K/mm3 RBC (4.1-5.6) M/mm3 Hgb (12.5-18.0) gm/dl Hct (42-50) % MCV (78-100) fl MCH (26-32) pg MCHC (32-36) g/dl RDW (11.5-14.0) % Plt Count (150-450) K/mm3 MPV (7.5-11.0) fl Gran % (36.0-66.0) % Eos # (Auto) (0-0.5) Absolute Lymphs (auto) (1.0-4.6) Absolute Monos (auto) (0.0-1.3) Lymphocytes % (24.0-44.0) % Monocytes % (0.0-12.0) % Eosinophils % (0.00-5.0) % Basophils % (0.0-0.4) % Absolute Granulocytes (1.4-6.9) Basophils # (0-0.4) pO2/FiO2 Ratio 21.0 % VBG pH 7.40 (7.32-7.42) VBG pCO2 at Pat Temp 35 L (42-55) mm/Hg VBG pO2 at Pat Temp 74 H (25-40) mm/Hg VBG HCO3 21.7 L (22-28) meq/L VBG O2 Sat (Antoine) 97.0 (95-100) VBG Base Excess -2.5 L (-2.0-2.0) VBG Hemoglobin 12.1 VBG Carboxyhemoglobin 4.1 (0.0-6.9) % T HGB POC Potassium 3.9 (3.5-5.1) Sodium (137-145) mmol/L Potassium (3.5-5.1) mmol/L Chloride (98-107) mmol/L Carbon Dioxide (22-30) mmol/L Anion Gap (5-15) MEQ/L BUN (9-20) mg/dL Creatinine (0.66-1.25) mg/dL Estimated GFR ML/MIN Glucose (74-106) mg/dL POC Glucometer 197 H 171 H (50 to 500) mg/dL Hemoglobin A1c (4.5-6.0) % Lactic Acid 0.7 (0.4-2.0) Calcium (8.4-10.2) mg/dL Magnesium (1.6-2.3) mg/dL Total Bilirubin (0.2-1.3) mg/dL AST (17-59) U/L ALT (0-50) U/L Alkaline Phosphatase (38-126) U/L Troponin I (0.000-0.034) ng/mL Serum Total Protein (6.3-8.2) g/dL Albumin (3.5-5.0) g/dL Urine Color (YELLOW) Urine Appearance (CLEAR) Urine pH (5-6) Ur Specific [place] (1.005-1.025) Urine Protein (Negative) Urine Ketones (NEGATIVE) Urine Blood (0-5) Rickey/ul Urine Nitrite (NEGATIVE) Urine Bilirubin (NEGATIVE) Urine Urobilinogen (0-1) mg/dL Ur Leukocyte Esterase (NEGATIVE) Urine WBC (Auto) (0-5) /HPF Urine RBC (Auto) (0-2) /HPF U Epithel Cells (Auto) (FEW) /HPF Urine Bacteria (Auto) (NEGATIVE) /HPF Urine Mucus (Auto) (NEGATIVE) /HPF Urine Culture Reflexed (NO) Urine Glucose (NEGATIVE) mg/dL SARS-CoV-2 (PCR) (NEGATIVE) Micro Results-Entire Visit: Accuchecks Date 11/13/20 Date 11/13/20 Date 11/13/20 Date 11/13/20 Date 11/12/20 Date 11/12/20 Date 11/12/20 Date 11/12/20 Time 07:00 Time 05:00 Time 03:00 Time 01:00 Time 23:00 Time 22:00 Time 21:00 Time 20:00 - Radiology Exams Ordered Rad Exams-Entire Visit: Radiology Procedures Category Date Time Status CHEST 1 VIEW (PORTABLE) Stat Exams 11/12/20 11:41 Completed - Procedures and Test Procedures and Tests throughout Hospitalization: Therapy Orders & Screens 11/12/20 21:03 RT Screen per Nursing Assess ONCE Comment: Protocol Order Physician Instructions: Greater than 3 points order RT Admission Screen Reason For Exam: Triggered on Admission Diagnosis: DKA Diagnosis: DKA Pneumonia: No Home O2: No Asthma: No CHF: Yes Home CPAP/BIPAP: No Home Nebs/MDI: Yes Total Points: 8 11/12/20 22:54 Respiratory Therapy Assessment DAILY Comment: Diagnosis: DKA 11/13/20 10:00 Respiratory MDI UD Comment: Diagnosis: DKA - Discharge Disposition: Home, Self-Care Condition: Good Prescriptions: New Pen Needle, Diabetic [Bd Ultra-Fine Pen Needle] 1 each SQ DAILY #100 dis.needle Metformin HCl 500 mg [Glucophage 500 MG] 500 mg PO BIDWM #60 tablet Insulin Glargine,Hum.rec.anlog [Lantus Solostar] 20 unit SQ HS #6 ml Continue Fluticasone/Umeclidin/Vilanter [Trelegy Ellipta 100-62.5-25] 1 each IH UD Albuterol 2.5 mg/3 ml Neb [Proventil 2.5 mg/3 ml Neb] 2.5 mg IH TID PRN PRN PRN Reason: dyspnea Clopidogrel Bisulfate 75 mg [PLAVIX 75 MG Tablet] 75 mg PO DAILY Pravastatin Sodium 20 mg PO DAILY Potassium Chloride [Klor-Con M20] 20 meq PO DAILY Amiodarone HCl [Pacerone] 100 mg PO DAILY Aspirin EC 81 mg [Ecotrin 81 mg] 1 tab PO QHS Bumetanide 1 mg [Bumex 1 mg] 1 mg PO BID Metoprolol Succinate 25 mg PO DAILY Sitagliptin Phosphate [Januvia] 100 mg PO DAILY Tadalafil [Cialis] 1 tab PO DAILY Docusate Sodium 100 mg [Colace 100 MG] 100 mg PO DAILY PRN PRN PRN Reason: Constipation Additional Instructions: continue januvia, add metformin 500mg bid and lantus 20 units at hs, monitor blood sugars three times daily and bring a log to f/u visit in 1 week. check fasting sugar and at lunch and dinner Follow up with: JOHNNY FROST MD [Primary Care Provider] - 1 Week
[2020-11-13] MEDS ORDERED: Colace 100 MG PO PRN (09:29)
[2020-11-13] MEDS ORDERED: MEDICATION INTERVENTION MC SCH (09:45)
[2020-11-13] MEDS ORDERED: NON-FORMULARY ITEM (Metoprolol Succinate 25 MG) PO SCH (10:00)
[2020-11-13] MEDS ORDERED: Cordarone 200 MG PO SCH (10:00)
[2020-11-13] MEDS ORDERED: PLAVIX 75 MG Tablet PO SCH (10:00)
[2020-11-13] MEDS ORDERED: NON-FORMULARY ITEM (Potassium Chloride [Klor-Con M20] 20 MEQ) PO SCH (10:00)
[2020-11-13] MEDS ORDERED: PATIENT OWN MEDICATION IH SCH (10:00)
[2020-11-13] MEDS ORDERED: NON-FORMULARY ITEM (Sitagliptin Phosphate [Januvia] 100 MG) PO SCH (10:00)
[2020-11-13] MEDS ORDERED: NON-FORMULARY ITEM (Pravastatin Sodium [Pravastatin Sodium] 20 MG) PO SCH (10:00)
[2020-11-13] MEDS ORDERED: Klor Con 10 MEQ PO SCH (10:00)
[2020-11-13] MEDS ORDERED: Januvia 50 MG PO SCH (10:00)
[2020-11-13] MEDS ORDERED: Toprol-Xl 25MG Tablets PO SCH (10:00)
[2020-11-13] MEDS ORDERED: TADALAFIL PO SCH (10:00)
[2020-11-13] MEDS ORDERED: BUMEX 1 MG PO SCH (10:00)
[2020-11-13 11:59] VITALS: BP 147/81; PULSE 86
[2020-11-13] MEDS ORDERED: ZOCOR 20MG PO SCH (22:00)
[2020-11-13] MEDS ORDERED: ECOTRIN 81 MG PO SCH (22:00)
== END 2020-11-13 12:02 | disposition home or self-care (01) ==
LOC: ED 11:33 → ICU 18:42
PROVIDERS: ADMIT Family Medicine; ATTEND Family Medicine
DX: E11.10 Type 2 diabetes mellitus with ketoacidosis without coma (principal); E11.65 Type 2 diabetes mellitus with hyperglycemia; Z79.899 Other long term (current) drug therapy; Z79.01 Long term (current) use of anticoagulants; Z20.828 Contact with and (suspected) exposure to other viral communicable diseases; Z95.1 Presence of aortocoronary bypass graft; I10 Essential (primary) hypertension; I25.2 Old myocardial infarction; F17.200 Nicotine dependence, unspecified, uncomplicated
CPT/HCPCS: 36000; 36415; 71045; 80048; 80053; 81001; 82805; 82947; 83036; 83605; 83735; 84484; 85025; 93005; 93041; 93268; 94760; 96360; 96361; 96365; 99285; G0378; U0003; J1815; J1817; J3480; A9270-GY

== ENCOUNTER 2021-08-13 06:25 | Day surgery (SDC) | payer MEDICARE ==
[2021-08-13] MEDS ORDERED: Lactated Ringers 1,000 ML IV SCH (07:00)
[2021-08-13] MEDS ORDERED: Xylocaine-Mpf 2% 5 Ml Vial ONE (07:55)
[2021-08-13] MEDS ORDERED: DIPRIVAN 200 MG/20 ML IV ONE ×3 (07:55→08:49)
[2021-08-13] MEDS ORDERED: PHENYLEPHRINE HCL ONE (08:19)
[2021-08-13] MEDS ORDERED: Lactated Ringers 1,000 ML IV ONE (08:54)
[2021-08-13 09:43] VITALS: O2SAT 95
--- NOTE | 2021-08-13 09:49 | OP ---
SURGERY DATE/TIME: 08/13/2021 0805 PREOPERATIVE DIAGNOSIS: Positive Cologuard. POSTOPERATIVE DIAGNOSES: 1) Large sigmoid colon mass. 2) Multiple polyps. PROCEDURE: Diagnostic colonoscopy. SURGEON: Thong Rodríguez M.D. ANESTHESIA: MAC by Liam Regan CRNA. ESTIMATED BLOOD LOSS: Minimal. SPECIMENS: There were two cold forceps biopsies of large sigmoid colon mass, multiple hot snare polypectomies and hot forceps polypectomies from the rectum, transverse colon as well as the sigmoid colon all sent in assistance representative containers. DESCRIPTION OF PROCEDURE: The patient consented to diagnostic colonoscopy following a positive Cologuard. Colonoscopy through the entire length of the colon to the level of the cecum was performed. There were multiple large polyps removed with hot snare throughout multiple areas of the colon. They were sent in assistance representative jars from each area including the pericecal region, transverse colon, and sigmoid as well as rectal region. There was a large mass in the sigmoid colon at 35 cm scope depth. It included approximately half the lumen of the colon with a large base felt too large to attempt removal with a snare. Therefore I took cold forceps biopsies of assistance representative areas of it and then placed tattoo ink at the base of the lesion again at 35 cm scope depth. These were sent separately and labeled "Sigmoid colon mass" for pathology purposes. There were again multiple polyps throughout different areas which all appeared to be completely removed with forceps and snares with no active bleeding from any of the areas following completion. I have advised that he continue to hold his aspirin and Plavix as we await pathology report and plan to schedule consultation with Dr. Vishnu Darby regarding surgical decision for sigmoid colon mass.
[2021-08-13 10:20] VITALS: PULSE 71
[2021-08-13 10:26] VITALS: BP 121/76
== END 2021-08-13 10:26 | disposition home or self-care (01) ==
LOC: SDC 06:25
PROVIDERS: ATTEND Family Medicine
DX: D12.5 Benign neoplasm of sigmoid colon (principal); D12.3 Benign neoplasm of transverse colon; R19.5 Other fecal abnormalities; K62.1 Rectal polyp; E11.9 Type 2 diabetes mellitus without complications; Z79.899 Other long term (current) drug therapy
CPT/HCPCS: 82947; 99100; J2370; J2704

== ENCOUNTER 2021-08-25 11:33 | Inpatient (IN) | payer MEDICARE ==
--- NOTE | 2021-09-02 14:38 | HP ---
DATE OF SURGERY: 09/03/2021 HISTORY OF PRESENT ILLNESS: The patient has been scoped by Dr. Rodríguez for a positive Cologuard. It appears that Dr. Rodríguez was able to find a large sigmoid colon mass during the procedure. Multiple biopsies were taken. The biopsies were not a cancerous biopsy at this time but however the mass was large and fungating. It looked like the mass was tattooed and noted to be at 35 cm. It was felt prudent to proceed with resection at this time. PAST MEDICAL HISTORY: Coronary artery disease. Diabetes. Hypertension. Hyperlipidemia. PAST SURGICAL HISTORY: Coronary artery bypass graft about five years ago. ALLERGIES: NKDA. MEDICATIONS: Aspirin, Plavix, fluticasone, potassium, bumetanide, Januvia, Metformin, metoprolol, Glyburide, Jardiance. FAMILY HISTORY: Heart disease. Cancer. SOCIAL HISTORY: Smokes one pack a day. REVIEW OF SYSTEMS: CONSTITUTIONAL: Denies fever or chills. CHEST: Denies shortness of breath. CVS: Denies chest pain. ABDOMEN: Denies abdominal pain, nausea, vomiting, diarrhea, constipation or rectal bleeding. PHYSICAL EXAMINATION: GENERAL: No acute distress. CHEST: Nonlabored. No shortness of breath. CVS: Regular rate and rhythm. ABDOMEN: Soft, nontender. IMPRESSION: Sigmoid colon mass. PLAN: Partial colon resection with primary anastomosis with Dr. Vishnu Darby. As dictated by Angela Dunlap NP.
[2021-09-03] MEDS ORDERED: MEFOXIN 2 GM PREMIX** 2 GM/50 ML ML IV ONE (11:18)
[2021-09-03] MEDS ORDERED: Lactated Ringers 1,000 ML IV ONE (11:18)
[2021-09-03] MEDS: Lactated Ringers 1,000 ML IV SCH (11:23)
[2021-09-03] MEDS ORDERED: ENTEREG 12 MG PO SCH (11:30)
[2021-09-03] MEDS ORDERED: MEFOXIN 2 GM PREMIX** 2 GM/50 ML ML IV SCH (12:00)
[2021-09-03 12:16] LABS: Hematocrit 46.4 % (42-50); Hemoglobin 15.6 gm/dl (12.5-18.0); Mean Cell Volume 90.1 fl (78-100); Mean Corpuscular Hemoglobin 30.3 pg (26-32); Mean Corpuscular Hgb Concent. 33.6 g/dl (32-36); Mean Platelet Volume 11.1 fl (7.5-11.0); Platelet Count 204 K/mm3 (150-450); Red Blood Count 5.15 M/mm3 (4.1-5.6); Red Cell Distribution Width 15.3 % (11.5-14.0); White Blood Count 8.3 K/mm3 (4.0-10.5)
[2021-09-03 13:05] LABS: ALBUMIN 4.3 g/dL (3.5-5.0); ALKALINE PHOSPHATASE 106 U/L (38-126); ANION GAP 15.2 MEQ/L (5-15); BLOOD UREA NITROGEN 17 mg/dL (9-20); CHLORIDE 100 mmol/L (98-107); Calcium 8.8 mg/dL (8.4-10.2); Carbon Dioxide 24 mmol/L (22-30); Creatinine 1 1.05 mg/dL (0.66-1.25); EST GLOMERULAR FILTRATION RATE > 60.0 ML/MIN; Glucose 78 mg/dL (74-106); Potassium 4.3 mmol/L (3.5-5.1); SGOT/AST 33 U/L (17-59); SGPT/ALT 23 U/L (0-50); SODIUM 135 mmol/L (137-145); Total Protein 7.7 g/dL (6.3-8.2)
[2021-09-03 13:32] LABS: ABO TYPING A; Antibody Screen NEGATIVE (NEGATIVE); RH TYPING POSITIVE
[2021-09-03 13:38] LABS: INFLUENZA A NEGATIVE (NEGATIVE); INFLUENZA B NEGATIVE (NEGATIVE); RESPIRATORY SYNCTIAL VIRUS NEGATIVE (Negative); SARS-CoV-2 Xpert Express NEGATIVE (NEGATIVE)
[2021-09-03] MEDS ORDERED: TORAdol 30 mg Injection ONE (14:58)
[2021-09-03] MEDS ORDERED: SUBLIMAZE 100 MCG/2 ML ONE ×2 (14:58→17:47)
[2021-09-03] MEDS ORDERED: Versed 2 MG/2 ML Injection ONE (14:58)
[2021-09-03] MEDS ORDERED: Xylocaine-Mpf 2% 5 Ml Vial ONE (14:58)
[2021-09-03] MEDS ORDERED: Decadron 4 MG INJ ONE ×3 (14:58→17:36)
[2021-09-03] MEDS ORDERED: Zofran 4 MG/2 ML VIAL ONE (14:58)
[2021-09-03] MEDS ORDERED: DIPRIVAN 200 MG/20 ML IV ONE (14:58)
[2021-09-03] MEDS ORDERED: BRIDION 200MG/2ML IV ONE (14:58)
[2021-09-03] MEDS ORDERED: Zemuron 100 MG/10 ML ONE (14:58)
[2021-09-03] MEDS ORDERED: Astramorph-Pf 5 MG/10 ML ONE (15:04)
[2021-09-03] MEDS ORDERED: LOPRESSOR 5 MG/5 ML INJECTION IV ONE (16:31)
[2021-09-03] MEDS ORDERED: Marcaine 0.5%/Epinephrine 10 ML ONE (17:33)
[2021-09-03] MEDS ORDERED: Ephedrine Sulfate 50 MG/ML ONE (17:43)
[2021-09-03] MEDS ORDERED: TYLENOL 325 MG PO PRN (19:10)
[2021-09-03] MEDS ORDERED: FEVERALL 650 MG PR PRN (19:10)
[2021-09-03] MEDS ORDERED: Narcan 0.4 MG/ML IV PRN (19:25)
[2021-09-03] MEDS ORDERED: CLARITIN 10 MG PO PRN (19:25)
[2021-09-03] MEDS ORDERED: BENADRYL 50 MG/ML IV PRN (19:25)
[2021-09-03] MEDS ORDERED: Nubain 10 MG/ML IV PRN (19:25)
[2021-09-03] MEDS ORDERED: DEMEROL 50 MG IV PRN (19:25)
[2021-09-03] MEDS ORDERED: Sodium Chloride 0.9% 10 ML FLUSH Syringe IJ PRN (19:25)
[2021-09-03] MEDS ORDERED: PERCOCET TABLET 5/325MG PO PRN (19:25)
[2021-09-03] MEDS ORDERED: HOLD NARCOTIC ANALGESICS AND SEDATIVES X24 HR MC PRN (19:25)
[2021-09-03] MEDS ORDERED: MORPHINE SULFATE 2 MG INJ IV PRN (19:25)
[2021-09-03] MEDS: D5W/0.45NS W/ 20mEq KCl 1000 ML 1,000 ML IV SCH (19:36)
[2021-09-03 20:14] LABS: Bacteria RARE /HPF (NEGATIVE); Mucus SLIGHT /HPF (NEGATIVE); RBC 0-2 /HPF (0-2); WBC 0-2 /HPF (0-5)
[2021-09-03 20:15] LABS: Appearance CLEAR (CLEAR); Bilirubin SMALL (NEGATIVE); Glucose >=1000 mg/dL (NEGATIVE); Ketones LARGE-80 (NEGATIVE); Specific Gravity 1.025 (1.005-1.025)
[2021-09-03 20:16] LABS: Nitrite NEGATIVE (NEGATIVE); Ph 5.5 (5-6); Protein,Urine Dip NEGATIVE (Negative); RBC TRACE-INTACT Ery/ul (0-5); Urobilinogen 0.2 mg/dL (0-1)
[2021-09-03 20:19] LABS: Dipstick done @ ? MAIN LAB
[2021-09-04] MEDS: MEFOXIN 1 Gm/ D5W 50 Ml** 1 G/50 ML ML IV SCH ×4 (00:08→17:39)
[2021-09-04] MEDS: D5W/0.45NS W/ 20mEq KCl 1000 ML 1,000 ML IV SCH ×2 (04:46→15:31)
[2021-09-04 04:55] LABS: Hematocrit 42.7 % (42-50); Hemoglobin 13.9 gm/dl (12.5-18.0); Mean Cell Volume 91.4 fl (78-100); Mean Corpuscular Hemoglobin 29.8 pg (26-32); Mean Corpuscular Hgb Concent. 32.6 g/dl (32-36); Mean Platelet Volume 11.2 fl (7.5-11.0); Platelet Count 197 K/mm3 (150-450); Red Blood Count 4.67 M/mm3 (4.1-5.6); Red Cell Distribution Width 14.9 % (11.5-14.0); White Blood Count 11.3 K/mm3 (4.0-10.5)
[2021-09-04 05:02] LABS: ANION GAP 13.8 MEQ/L (5-15); Calcium 8.3 mg/dL (8.4-10.2); Creatinine 1 1.27 mg/dL (0.66-1.25); EST GLOMERULAR FILTRATION RATE 59.6 ML/MIN; Potassium 5.1 mmol/L (3.5-5.1)
--- NOTE | 2021-09-04 09:07 | OP ---
SURGERY DATE/TIME: 09/03/2021 1539 PREOPERATIVE DIAGNOSIS: Sigmoid severe atypical polyp in a diverticulosis field. POSTOPERATIVE DIAGNOSIS: Sigmoid severe atypical polyp in a diverticulosis field. PROCEDURES: Sigmoid colon resection with primary anastomosis, limited enteroscopic C-scope 50 cm. SURGEON: Vishnu Darby M.D. ANESTHESIA: General. COMPLICATIONS: None. DRAINS: None. CONDITION: Stable. INDICATION: The patient has very large polyp basically filling the lumen. It is in a field of diverticula in the sigmoid. There is no way to safely resect this endoscopically. DESCRIPTION OF PROCEDURE: He is brought to surgery. General anesthetic. Routine prep and drape. The lower midline incision was fashioned. He had a right paramedian. 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 He is also a heavy smoker and had a previous coronary artery bypass graft. With care and patience, the right lower quadrant adhesions were all mobilized. The sigmoid had been leaning over to the right side actually tucked into this mess and it was able to be dissected out. There was not much blue dye but there was a trace. The area almost could be felt that it was a little less than clear so scope was introduced and the lesion was remarked with the scope. There were smaller polyps around which we will deal with at three to six month follow up. The lesion was marked. The resection field was marked. At this time it was taken with a JIM stapler proximally. The mesentery taken in a traditional fashion throughout. At this time the proximal area was set up for an EEA stapler. This was opened and size 29 was placed and it was closed off with a JIM distally. The gun was placed proximally into the sigmoid-descending colon junction. It was then assembled to the distal sigmoid. It was fired and fired nicely and 2 cm distally on this it was transected with a JIM. The circulation looked excellent on both the proximal and distal blind stumps. Mesenteric defect approximated with running 3-0 PDS. The field was dry. It set very nicely. The small bowel had been mobilized and set very nicely. Residual omentum brought down. Anterior abdominal wall closed with loop 0 PDS. Subcutaneous tissue irrigated. Skin closed with dorinda. Sterile dressing applied. The patient tolerated the procedure satisfactorily.
[2021-09-04] MEDS: ENTEREG 12 MG PO SCH ×2 (10:40→21:30)
[2021-09-04] MEDS: ENOXAPARIN SODIUM SQ SCH (10:41)
[2021-09-04] MEDS ORDERED: NON-FORMULARY ITEM (Fluticasone/Umeclidin/Vilanter [Trelegy Ellipta 100-62.5-25] 1 EACH Bl IH SCH (15:45)
[2021-09-04] MEDS ORDERED: MEDICATION INTERVENTION MC SCH (15:45)
[2021-09-04] MEDS: Klor Con 10 MEQ PO SCH (17:24)
[2021-09-04] MEDS: JARDIANCE PO SCH (17:24)
[2021-09-04] MEDS: Januvia 50 MG PO SCH (17:24)
[2021-09-04] MEDS: Glucophage 500 MG PO SCH (17:24)
[2021-09-04] MEDS: BUMEX 1 MG PO SCH (17:28)
[2021-09-04] MEDS: PLAVIX 75 MG Tablet PO SCH (17:39)
[2021-09-04] MEDS ORDERED: Morphine PCA 1 MG/ML 30 ML IV PRN (19:10)
[2021-09-04] MEDS: ECOTRIN 81 MG PO SCH (21:31)
[2021-09-04] MEDS: Lopressor 25MG Tab PO SCH (21:31)
[2021-09-05] MEDS: NORCO 5/325 MG PO PRN ×5 (00:44→19:46)
[2021-09-05] MEDS: D5W/0.45NS W/ 20mEq KCl 1000 ML 1,000 ML IV SCH ×2 (03:56→20:25)
[2021-09-05 05:49] LABS: Hematocrit 39.9 % (42-50); Mean Cell Volume 91.9 fl (78-100); Mean Corpuscular Hgb Concent. 32.6 g/dl (32-36); Mean Platelet Volume 10.8 fl (7.5-11.0); Platelet Count 185 K/mm3 (150-450); Red Blood Count 4.34 M/mm3 (4.1-5.6); Red Cell Distribution Width 15.1 % (11.5-14.0); White Blood Count 13.8 K/mm3 (4.0-10.5)
[2021-09-05 06:08] LABS: ALBUMIN 3.6 g/dL (3.5-5.0); ALKALINE PHOSPHATASE 75 U/L (38-126); ANION GAP 10.7 MEQ/L (5-15); BLOOD UREA NITROGEN 23 mg/dL (9-20); CHLORIDE 102 mmol/L (98-107); Calcium 8.2 mg/dL (8.4-10.2); Carbon Dioxide 24 mmol/L (22-30); Creatinine 1 0.98 mg/dL (0.66-1.25); EST GLOMERULAR FILTRATION RATE > 60.0 ML/MIN; Glucose 165 mg/dL (74-106); Potassium 4.2 mmol/L (3.5-5.1); SGOT/AST 28 U/L (17-59); SGPT/ALT 20 U/L (0-50); SODIUM 133 mmol/L (137-145); Total Protein 6.6 g/dL (6.3-8.2)
[2021-09-05] MEDS: Glucophage 500 MG PO SCH ×2 (07:37→17:14)
[2021-09-05] MEDS: PLAVIX 75 MG Tablet PO SCH (09:15)
[2021-09-05] MEDS: Klor Con 10 MEQ PO SCH (09:15)
[2021-09-05] MEDS: Januvia 50 MG PO SCH (09:16)
[2021-09-05] MEDS: BUMEX 1 MG PO SCH ×2 (09:16→17:14)
[2021-09-05] MEDS: ENTEREG 12 MG PO SCH ×2 (09:16→21:25)
[2021-09-05] MEDS: JARDIANCE PO SCH (09:17)
[2021-09-05] MEDS: Lopressor 25MG Tab PO SCH ×2 (09:18→21:25)
[2021-09-05] MEDS: ENOXAPARIN SODIUM SQ SCH (09:18)
[2021-09-05] MEDS ORDERED: NON-FORMULARY ITEM (Potassium Chloride [Klor-Con M20] 20 MEQ Tab.Er.Prt) PO SCH (10:00)
[2021-09-05] MEDS ORDERED: METFORMIN HCL PO SCH (10:00)
[2021-09-05] MEDS ORDERED: SITAGLIPTIN PHOSPHATE 100 MG PO SCH (10:00)
[2021-09-05] MEDS ORDERED: GLYBURIDE PO SCH (10:00)
[2021-09-05] MEDS ORDERED: [UNRECOGNIZED DRUG - OTHER] PO SCH (10:00)
[2021-09-05] MEDS: PATIENT OWN MEDICATION IH SCH (11:00)
[2021-09-05] MEDS: Zofran 4 MG/2 ML VIAL IVIM PRN (15:54)
--- NOTE | 2021-09-05 19:28 | XRAY ---
Indication: Pain. Postop colectomy 2 days ago. Comparison: None KUB demonstrates mild air distended bowel loops with midline cutaneous dorinda favoring postoperative ileus. No large free air. Solid organs unremarkable. Osseous structures intact with osteopenia and degenerative changes. Lung bases demonstrates CABG surgery and tiny calcified splenic granulomas. Impression: Postoperative ileus. Comment: Preliminary interpretation made by [facility]. No critical discrepancy.
[2021-09-05] MEDS: ECOTRIN 81 MG PO SCH (21:25)
[2021-09-06] MEDS: NORCO 5/325 MG PO PRN ×5 (00:20→23:08)
[2021-09-06] MEDS: Zofran 4 MG/2 ML VIAL IVIM PRN (04:32)
[2021-09-06 06:33] LABS: Absolute Neutrophil Ct (ANC) 9.99 (1.4-6.9); Basophil (Absolute #) 0.01 (0-0.4); Eosinophil % 0.5 % (0.00-5.0); Eosinophil (Absolute #) 0.06 (0-0.5); Hematocrit 44.8 % (42-50); Hemoglobin 14.8 gm/dl (12.5-18.0); Lymphocyte (Absolute #) 1.41 (1.0-4.6); Lymphocytes % 11.5 % (24.0-44.0); Mean Cell Volume 91.4 fl (78-100); Mean Corpuscular Hemoglobin 30.2 pg (26-32); Mean Platelet Volume 11.1 fl (7.5-11.0); Monocyte (Absolute #) 0.82 (0.0-1.3); Monocytes % 6.7 % (0.0-12.0); Neutrophil % 81.2 % (36.0-66.0); Platelet Count 200 K/mm3 (150-450); White Blood Count 12.3 K/mm3 (4.0-10.5)
[2021-09-06 06:38] LABS: ALBUMIN 3.9 g/dL (3.5-5.0); ALKALINE PHOSPHATASE 85 U/L (38-126); ANION GAP 11.5 MEQ/L (5-15); BLOOD UREA NITROGEN 15 mg/dL (9-20); CHLORIDE 100 mmol/L (98-107); Calcium 8.5 mg/dL (8.4-10.2); Carbon Dioxide 25 mmol/L (22-30); Creatinine 1 0.94 mg/dL (0.66-1.25); EST GLOMERULAR FILTRATION RATE > 60.0 ML/MIN; Glucose 148 mg/dL (74-106); Potassium 4.3 mmol/L (3.5-5.1); SGOT/AST 29 U/L (17-59); SGPT/ALT 23 U/L (0-50); SODIUM 132 mmol/L (137-145); Total Protein 7.1 g/dL (6.3-8.2)
[2021-09-06] MEDS: PATIENT OWN MEDICATION IH SCH ×2 (07:11→07:12)
[2021-09-06] MEDS: Glucophage 500 MG PO SCH ×2 (07:57→17:08)
[2021-09-06] MEDS: D5W/0.45NS W/ 20mEq KCl 1000 ML 1,000 ML IV SCH ×2 (07:58→19:26)
[2021-09-06] MEDS: Januvia 50 MG PO SCH (09:23)
[2021-09-06] MEDS: Lopressor 25MG Tab PO SCH ×2 (09:24→21:28)
[2021-09-06] MEDS: PLAVIX 75 MG Tablet PO SCH (09:24)
[2021-09-06] MEDS: BUMEX 1 MG PO SCH ×2 (09:24→17:08)
[2021-09-06] MEDS: Klor Con 10 MEQ PO SCH (09:24)
[2021-09-06] MEDS: JARDIANCE PO SCH (09:25)
[2021-09-06] MEDS: ENOXAPARIN SODIUM SQ SCH (09:26)
[2021-09-06] MEDS: ENTEREG 12 MG PO SCH ×2 (09:26→21:29)
[2021-09-06] MEDS: Lactated Ringers 1,000 ML IV SCH (20:54)
[2021-09-06] MEDS: ECOTRIN 81 MG PO SCH (21:28)
[2021-09-07] MEDS: NORCO 5/325 MG PO PRN ×5 (03:36→22:08)
[2021-09-07] MEDS: Glucophage 500 MG PO SCH ×2 (07:39→17:52)
[2021-09-07] MEDS: PATIENT OWN MEDICATION IH SCH (07:53)
--- NOTE | 2021-09-07 08:32 | PCM.NOTE ---
Date and Time: 09/07/21829 Subjective Assessment: patient is tolerating full liquid diet, had some scrambled eggs this morning. he has passed flatus, no bowel movement since surgery. Objective Exam General Appearance: no apparent distress, alert Wound Assessment: Skin/Wound Assessment Wound/Incision Assessment Start: 09/03/21 20:00 Text: Status: Active Freq: Q6H Protocol: Document 09/07/21 07:52 [facility] (Rec: 09/07/21 07:52 [facility] [id number]) Wound/Incision Assessment Medial Abdomen Wound Assessment Shift Assessment Wound Type Incision Wound Stage Non Pressure Wound Dressing Status Dry & Intact Drainage Amount None Drainage Odor None/Absent Comment abdominal binder in place.. Wound Photo Photo Taken No Respiratory Exam: normal breath sounds, lungs clear, No respiratory distress Cardiovascular Exam: regular rate/rhythm, normal heart sounds Gastrointestinal/Abdomen Exam: soft, other (bowel sounds present, binder present), No tenderness, No distention, No mass, No guarding, No rebound Extremity Exam: normal inspection, normal range of motion OBJECTIVE DATA Vital Signs: Vital Signs - 24 hr Temp Pulse Resp BP Pulse Ox 09/07/21 08:23 110 H 20 93 L 09/07/21 07:09 97.9 F 54 L 16 136/77 91 L 09/07/21 04:00 97.7 F 76 20 132/66 96 09/07/21 00:00 98.0 F 66 20 122/64 96 09/06/21 19:47 97.7 F 56 L 20 144/83 93 L 09/06/21 19:34 93 L 09/06/21 16:00 98.0 F 86 16 143/87 93 L 09/06/21 12:00 97.5 F 82 16 133/66 93 L Pain Assessment - Last Documented Pain Intensity 3 Pain Scale Used 0-10 Pain Scale Intake and Output: Intake & Output 09/04/21 09/05/21 09/06/21 09/07/21 11:59 11:59 11:59 11:59 Intake Total 1095 1783 1992 3536 Output Total 503 9270 0530 3400 Balance 200 -337 -8276 136 Weight 76.5 kg Lab Results: Lab Results-Last 24 Hours 09/06/21 09/06/21 09/07/21 Range/Units 11:44 16:39 07:40 POC Glucometer 279 H 153 H 128 H (74 to 106) mg/dL Radiology Exams: Radiology Procedures Category Date Time Status KUB Routine Exams 09/05/21 08:00 Completed Assessment/Plan (1) S/P colon resection Current Visit: Yes Status: Acute Assessment & Plan: doing well, IV is out. will consult with surgery but seems to have adequate po intake Code(s): Z90.49 - ACQUIRED ABSENCE OF OTHER SPECIFIED PARTS OF DIGESTIVE TRACT (2) Type 2 diabetes mellitus Current Visit: Yes Status: Acute
[2021-09-07] MEDS: PLAVIX 75 MG Tablet PO SCH (10:01)
[2021-09-07] MEDS: BUMEX 1 MG PO SCH ×2 (10:01→17:52)
[2021-09-07] MEDS: Klor Con 10 MEQ PO SCH (10:01)
[2021-09-07] MEDS: Januvia 50 MG PO SCH (10:01)
[2021-09-07] MEDS: Lopressor 25MG Tab PO SCH ×2 (10:01→22:07)
[2021-09-07] MEDS: ENOXAPARIN SODIUM SQ SCH (10:02)
[2021-09-07] MEDS: ENTEREG 12 MG PO SCH ×2 (10:02→22:07)
[2021-09-07] MEDS: JARDIANCE PO SCH (11:56)
[2021-09-07] MEDS: ECOTRIN 81 MG PO SCH (22:07)
[2021-09-08] MEDS: NORCO 5/325 MG PO PRN ×3 (02:37→10:54)
[2021-09-08] MEDS: PATIENT OWN MEDICATION IH SCH (07:48)
[2021-09-08] MEDS: Glucophage 500 MG PO SCH (07:54)
--- NOTE | 2021-09-08 09:06 | PCM.DS ---
Discharge Summary Date of Admission: 09/03/21 10:47 Admitting Physician: RUI MAN Consults: Consults on Case 09/03/21 19:11 Notify Physician ROUTINE 09/03/21 19:25 Notify Anesthesia Provider PRN Primary Care Provider: JOHNNY FROST Allergies Allergies No Known Drug Allergies Allergy (Verified 08/26/21 14:44) Hospital Summary - Hospital Course Hospital Course: Pt is a 71 yo diabetic pt of Dr. Frost with DM, CAD, HTN, and TOB dependence who was admitted s/p colon resection by DR. Man. This morning he is passing flatus and had a BM. Taking his meds po. Priya food po. Walking well. On percocet for pain - currently 07/16 (recently had a pain pill). Would like to go home. - Vitals & Intake/Output Vital Signs: Vital Signs Temperature 97.7 F 09/08/21 07:55 Pulse Rate 108 H 09/08/21 07:55 Respiratory Rate 22 09/08/21 07:55 Blood Pressure 118/63 09/08/21 07:55 O2 Sat by Pulse Oximetry 95 09/08/21 07:55 Intake & Output: Intake & Output 09/05/21 09/06/21 09/07/21 09/08/21 11:59 11:59 11:59 11:59 Intake Total 1783 4173 3536 240 Output Total 2550 3540 3400 Balance -767 1548 136 240 - Lab Result Diagrams: 09/06/21 05:45 09/06/21 05:45 Lab Results-Last 24 Hrs: Lab Results-Last 24 Hours 09/07/21 09/07/21 09/07/21 Range/Units 11:38 16:14 21:17 POC Glucometer 127 H 138 H 174 H (74 to 106) mg/dL 09/08/21 Range/Units 07:17 POC Glucometer 159 H (74 to 106) mg/dL Micro Results-Entire Visit: Microbiology 09/03/21 15:50 Urine Culture - Final Urine, Catheterized NO GROWTH Accuchecks Date 09/08/21 Date 09/07/21 Date 09/07/21 Time 07:15 Time 16:51 Time 11:43 - Procedures and Test Procedures and Tests throughout Hospitalization: Therapy Orders & Screens 09/03/21 19:25 Oxygen Nasal Cannula 3 lpm Comment: Diagnosis: sigmoid colon mass 09/05/21 07:00 Respiratory MDI DAILY Comment: Trelegy Daily-Pt's own med Diagnosis: sigmoid colon mass Respiratory Therapy Assessment DAILY Comment: Diagnosis: sigmoid colon mass 09/05/21 13:00 Incentive Spirometry TID Comment: Diagnosis: sigmoid colon mass Discharge Exam General Appearance: no apparent distress, alert Neurologic Exam: oriented x 3, cooperative Eye Exam: eyes nml inspection Ears, Nose, Throat Exam: moist mucous membranes Neck Exam: normal inspection Respiratory Exam: normal breath sounds, lungs clear, No crackles/rales, No rho nchi, No wheezing Cardiovascular Exam: regular rate/rhythm, normal heart sounds, No murmur Gastrointestinal/Abdomen Exam: soft, normal bowel sounds, other (dressing c/d/i.) Back Exam: normal inspection, No rash Extremity Exam: normal inspection, No pedal edema, No swelling Skin Exam: normal color, warm, dry, No rash Wound Assessment: Skin/Wound Assessment Wound/Incision Assessment Start: 09/03/21 20:00 Text: Status: Active Freq: Q6H Protocol: Document 09/08/21 08:00 DS (Rec: 09/08/21 08:47 DS [id number]) Wound/Incision Assessment Medial Abdomen Wound Assessment Shift Assessment Wound Type Incision Wound Stage Non Pressure Wound Dressing Status Dry & Intact Drainage Amount None Drainage Odor None/Absent Comment abdominal binder in place.. Wound Photo Photo Taken No Final Diagnosis/Problem List - Final Discharge Diagnosis/Problem (1) S/P colon resection Current Visit: Yes Status: Acute Assessment & Plan: IF OK with Dr. Man, would release the pt to home. Code(s): Z90.49 - ACQUIRED ABSENCE OF OTHER SPECIFIED PARTS OF DIGESTIVE TRACT (2) Type 2 diabetes mellitus Current Visit: Yes Status: Chronic Assessment & Plan: F/u with Dr. Frost in 1 week. - Discharge Disposition: Home, Self-Care Condition: Stable Prescriptions: New Hydrocodone/Acetaminophen [Hydrocodone-Acetamin 5-325 mg] 1 tab PO Q4HPRN PRN 5 Days #28 tablet MDD 6 PRN Reason: Pain Continue Fluticasone/Umeclidin/Vilanter [Trelegy Ellipta 100-62.5-25] 1 each IH UD Potassium Chloride [Klor-Con M20] 20 meq PO DAILY Bumetanide 1 mg [Bumex 1 mg] 1 mg PO BID Sitagliptin Phosphate [Januvia] 100 mg PO DAILY Metformin HCl 500 mg [Glucophage 500 MG] 500 mg PO BIDWM #60 tablet Metoprolol Tartrate 25 mg [Lopressor 25MG Tab] 25 mg PO BID Glyburide/Metformin HCl [Glyburide-Metformin 5-500 mg] 1 tab PO DAILY Empagliflozin [Jardiance] 25 mg PO DAILY Aspirin EC 81 mg [Ecotrin 81 mg] 1 tab PO QHS #0 Clopidogrel Bisulfate 75 mg [PLAVIX 75 MG Tablet] 75 mg PO DAILY #0 Follow up with: JOHNNY FROST MD [Primary Care Provider] - 09/18/21 10:15 am RUI MAN [ACTIVE STAFF] - 09/15/21 2:45 pm ([facility])
[2021-09-08] MEDS: Januvia 50 MG PO SCH (10:13)
[2021-09-08] MEDS: JARDIANCE PO SCH (10:14)
[2021-09-08] MEDS: BUMEX 1 MG PO SCH (10:16)
[2021-09-08] MEDS: PLAVIX 75 MG Tablet PO SCH (10:16)
[2021-09-08] MEDS: Klor Con 10 MEQ PO SCH (10:18)
[2021-09-08] MEDS: Lopressor 25MG Tab PO SCH (10:18)
[2021-09-08] MEDS: ENTEREG 12 MG PO SCH (10:19)
[2021-09-08] MEDS: ENOXAPARIN SODIUM SQ SCH (10:20)
[2021-09-08 12:33] VITALS: BP 116/76; PULSE 96
[2021-09-08 13:46] VITALS: O2SAT 97
== END 2021-09-08 14:44 | disposition home or self-care (01) | DRG 331 ==
LOC: MED SURG 09-03 10:47 → EDSTATUS 09-03 11:37 → MED SURG 09-03 13:23
PROVIDERS: ADMIT Surgery; ATTEND Surgery
PROC: 0DTN0ZZ Resection of Sigmoid Colon, Open Approach (ICD-10-PCS; principal; 2021-09-03)
DX: D12.5 Benign neoplasm of sigmoid colon (principal); E11.9 Type 2 diabetes mellitus without complications; I25.10 Atherosclerotic heart disease of native coronary artery without angina pectoris; I10 Essential (primary) hypertension; E78.5 Hyperlipidemia, unspecified; K57.30 Diverticulosis of large intestine without perforation or abscess without bleeding; R19.5 Other fecal abnormalities; Z79.899 Other long term (current) drug therapy; Z20.828 Contact with and (suspected) exposure to other viral communicable diseases; Z79.01 Long term (current) use of anticoagulants; Z72.0 Tobacco use
CPT/HCPCS: 0241U; 36415; 62322; 64488; 74018; 76937; 76942; 80048; 80053; 81001; 82947; 83036; 85025; 85027; 86850; 86900; 86901; 87086; 94640; 94760; 94762; J0694; J1100; J1650; J1885; J2250; J2274; J2405; J2704; J3010; L0625; A9270-GY